=== PATIENT | male | born 1960 | race Caucasian/White ===

== ENCOUNTER 2016-10-08 07:20 | Day surgery (SDC) | payer BC ==
[2016-10-07 10:53] VITALS: BMI 16.9
[~2016-10-08 07:20] MED LIST: LACTATED RINGERS 1,000 ML IV SCH
[2016-10-08] MEDS ORDERED: LACTATED RINGERS 1,000 ML IV ONE (07:30)
[2016-10-08 07:33] VITALS: TEMP 96.9
[2016-10-08] MEDS ORDERED: MIDAZOLAM 2 MG/2 ML VIAL ONE (07:46)
[2016-10-08] MEDS ORDERED: PROPOFOL 10 MG/ML 20 ML VIAL IV ONE (07:46)
[2016-10-08] MEDS ORDERED: fentaNYL (PF) 50 MCG/ML 2 ML AMP ONE (07:46)
--- NOTE | 2016-10-08 07:49 | P.GSHP ---
History of Present Illness H&P Date: 10/08/16 Chief Complaint: Cancer screening Patient here today for colonoscopy. She has not had one for quite some time. Denies any bowel related complaints. No family history of colon cancer. He has a personal history of testicular cancer. Past Medical History Past Medical History: Cancer, CVA/TIA Additional Past Medical History / Comment(s): HX OF TESTICULAR CA, HAD SX, RADIATION AND CHEMO, HX OF TYRON TINNITUS. HX TIA, NO RESIDUAL EFFECTS History of Any Multi-Drug Resistant Organisms: None Reported Additional Past Surgical History / Comment(s): TESTICULAR CANCER SX Past Anesthesia/Blood Transfusion Reactions: No Reported Reaction Past Psychological History: No Psychological Hx Reported Smoking Status: Never smoker Past Alcohol Use History: None Reported Past Drug Use History: None Reported - Past Family History Father Family Medical History: Cancer Additional Family Medical History / Comment(s): LEUKEMIA Medications and Allergies Home Medications Medication Instructions Recorded Confirmed Type Multivitamin [Multiple Vitamins] 1 each PO DAILY 10/08/16 10/08/16 History Allergies Allergy/AdvReac Type Severity Reaction Status Date / Time No Known Allergies Allergy Verified 10/07/16 10:48 Surgical - Exam Vital Signs Temp Pulse Resp BP Pulse Ox 96.9 F L 76 14 130/70 100 10/08/16 07:32 10/08/16 07:32 10/08/16 07:32 10/08/16 07:32 10/08/16 07:32 Physical exam: General: Malnourished appearing male in no distress HEENT: Normocephalic, sclerae nonicteric Abdomen: Nontender, nondistended Extremities: No edema Neuro: Alert and oriented Assessment and Plan (1) Colon cancer screening Narrative/Plan: Will proceed with colonoscopy at this time. Status: Acute
--- NOTE | 2016-10-08 08:06 | P.PCN ---
Date of Procedure: 10/08/16 Preoperative Diagnosis: Postoperative Diagnosis: Procedure(s) Performed: PREOPERATIVE DIAGNOSIS: Colon cancer screening POSTOPERATIVE DIAGNOSIS: Diverticulosis PROCEDURE: Colonoscopy ANESTHESIA: MAC SURGEON: Mic Barron M.D. SPECIMENS: None ENDOSCOPIC PROCEDURE: The patient was placed on the endoscopy table in the left decubitus position. The Olympus colonoscope was inserted into the anus and passed under direct visualization to the base of the cecum. The appendiceal orifice was visualized. From that point the scope was slowly withdrawn inspecting all surfaces carefully. There were no neoplastic inflammatory or polypoid lesions throughout the cecum, ascending, transverse, descending, sigmoid and rectum. There was mild diverticulosis noted throughout the colon. Digital rectal examination was normal. The patient was taken to the recovery room in stable condition per anesthesia guidelines. RECOMMENDATIONS: Increase fiber. Follow-up colonoscopy in 10 years. Implants: Indications for Procedure: Operative Findings: Description of Procedure:
[2016-10-08 08:44] VITALS: BP 109/60; PULSE 63; RESP 16
== END 2016-10-08 08:59 | disposition home or self-care (01) ==
LOC: ORWHC2ENDO 07:20
PROVIDERS: ATTEND Surgery
DX: Z12.11 Encounter for screening for malignant neoplasm of colon (principal); K57.30 Diverticulosis of large intestine without perforation or abscess without bleeding; Z85.47 Personal history of malignant neoplasm of testis; Z86.73 Personal history of transient ischemic attack (TIA), and cerebral infarction without residual deficits; Z92.21 Personal history of antineoplastic chemotherapy; Z92.3 Personal history of irradiation
CPT/HCPCS: J2250; J3010; J2704; G0121

== ENCOUNTER 2018-03-06 13:03 | Inpatient (IN) | payer BC ==
[2018-03-06] MEDS ORDERED: SODIUM CHLORIDE 0.9% 1,000 ML IV STA (14:35)
--- NOTE | 2018-03-06 14:35 | ED ---
General Adult HPI <Jermaine Koo - Last Filed: 03/06/18 16:38> - General Source: patient Mode of arrival: wheelchair Limitations: no limitations <Edward Longoria - Last Filed: 03/06/18 18:50> - General Chief complaint: Abdominal Pain Stated complaint: Abdomen Pain Time Seen by Provider: 03/06/18 14:09 - History of Present Illness Initial comments: 57-year-old male with a history of testicular cancer and IBS presents to the emergency department for a chief complaint of right sided abdominal pain times one day. Patient states pain was severe for about 2 hours and has since resolved somewhat. Patient denies a history of appendectomy. He did have a colonoscopy 1 year ago and was diagnosed with diverticulosis. Patient denies any nausea or vomiting. He described the pain as a sharp pain. He denies any fevers or chills at home. Patient has no other complaints at this time including shortness of breath, chest pain, abdominal pain, nausea or vomiting, headache, or visual changes. (Edward Longoria) - Related Data Home Medications Medication Instructions Recorded Confirmed No Known Home Medications 03/06/18 03/06/18 Allergies Allergy/AdvReac Type Severity Reaction Status Date / Time No Known Allergies Allergy Verified 03/06/18 14:31 Review of Systems ROS Other: All systems not noted in ROS Statement are negative. <Jermaine Koo - Last Filed: 03/06/18 16:38> ROS Other: All systems not noted in ROS Statement are negative. <Edward Longoria - Last Filed: 03/06/18 18:50> ROS Statement: Those systems with pertinent positive or pertinent negative responses have been documented in the HPI. Past Medical History Past Medical History: Cancer, CVA/TIA Additional Past Medical History / Comment(s): HX OF TESTICULAR CA, HAD SX, RADIATION AND CHEMO, HX OF TYRON TINNITUS. HX TIA, NO RESIDUAL EFFECTS History of Any Multi-Drug Resistant Organisms: None Reported Additional Past Surgical History / Comment(s): TESTICULAR CANCER SX Past Anesthesia/Blood Transfusion Reactions: No Reported Reaction Past Psychological History: No Psychological Hx Reported Smoking Status: Never smoker Past Alcohol Use History: None Reported Past Drug Use History: None Reported - Past Family History Father Family Medical History: Cancer Additional Family Medical History / Comment(s): LEUKEMIA <Edward Longoria - Last Filed: 03/06/18 18:50> General Exam Limitations: no limitations General appearance: alert, in no apparent distress Head exam: Present: atraumatic, normocephalic, normal inspection Eye exam: Present: normal appearance, PERRL, EOMI. Absent: scleral icterus, conjunctival injection, periorbital swelling ENT exam: Present: normal exam, mucous membranes moist Neck exam: Present: normal inspection, full ROM. Absent: tenderness, meningismus, lymphadenopathy Respiratory exam: Present: normal lung sounds bilaterally. Absent: respiratory distress, wheezes, rales, rhonchi, stridor Cardiovascular Exam: Present: regular rate, normal rhythm, normal heart sounds. Absent: systolic murmur, diastolic murmur, rubs, gallop, clicks GI/Abdominal exam: Present: soft, tenderness (Patient has right lower abdominal tenderness without rebound or guarding. Positive obturator sign. Negative Longoria sign. ), normal bowel sounds. Absent: distended, guarding, rebound, rigid Neurological exam: Present: alert, oriented X3, CN II-XII intact Psychiatric exam: Present: normal affect, normal mood <Edward Longoria P - Last Filed: 03/06/18 18:50> Course <Jermaine Koo - Last Filed: 03/06/18 16:38> <Edward Longoria P - Last Filed: 03/06/18 18:50> Vital Signs 03/06/18 03/06/18 03/06/18 13:04 15:24 17:22 Temperature 98.6 F Pulse Rate 89 86 68 Respiratory 18 16 16 Rate Blood Pressure 151/62 130/74 128/71 O2 Sat by Pulse 96 100 99 Oximetry - Reevaluation(s) Reevaluation #1: 03/06/18 16:39 Patient reevaluated by myself, Dr. Koo. Patient states he did have discomfort around 1 month ago that resolved after just a couple of days. Patient did see his doctor at that time and was given antibiotics however did not finish the prescription. Discomfort started again yesterday. Abdomen is soft with mild to moderate tenderness more so on the right side. Patient and family updated on CT results and concerns. This does include concerns regarding right renal mass. Case was discussed in detail with Dr. Olmos, who will admit his patient with consult for Dr. Fang. Patient does not meet sepsis criteria. (Jermaine Koo) Medical Decision Making - Lab Data Result diagrams: 03/06/18 14:19 03/06/18 14:19 <Jermaine Koo - Last Filed: 03/06/18 16:38> - Lab Data Result diagrams: 03/06/18 14:19 03/06/18 14:19 <Edward Longoria - Last Filed: 03/06/18 18:50> - Medical Decision Making 87-year-old male with a past medical history of IBS and testicular cancer presents to the emergency department for a chief complaint of right-sided abdominal pain times one day. Patient states this pain lasted for about 2 hours and has since resolved somewhat. He was offered pain medication at this time and currently refused. Patient is afebrile in the emergency department and vitals are stable. On exam patient does have right lower quadrant tenderness with positive obturator. No history of appendectomy. CBC and CMP unremarkable. Total bilirubin 2.0. Patient denies any right upper quadrant pain or epigastric pain. AST and ALT are within normal limits. CT abdomen and pelvis with contrast shows severe inflammation along the right side of the abdomen. There is irregular wall thickening which involves the ascending colon and hepatic flexure with mild free fluid. Mild diverticular changes are noted here. Patient does have a history of irritable bowel syndrome. Appendix is visualized and is also mildly inflamed with diffuse thickening up to 8 mm. This could be reactive rather than acute appendicitis. There is prominent fluid filled small bowel loops in the pelvis likely secondary ileus. At this time it is felt that patient should be admitted with surgical consult. He was started on IV antibiotics and blood cultures were drawn. Patient also has a mass on the kidney. Dr. Koo spoke with Dr. Olmos about this and he is now aware as well as the patient. (Edward Longoria) - Lab Data Lab Results 03/06/18 03/06/18 03/06/18 Range/Units 14:19 14:19 14:19 WBC 7.4 (3.8-10.6) k/uL RBC 4.40 (4.30-5.90) m/uL Hgb 13.7 (13.0-17.5) gm/dL Hct 41.0 (39.0-53.0) % MCV 93.3 (80.0-100.0) fL MCH 31.1 (25.0-35.0) pg MCHC 33.4 (31.0-37.0) g/dL RDW 14.1 (11.5-15.5) % Plt Count 211 (150-450) k/uL Neutrophils % 87 % Lymphocytes % 9 % Monocytes % 2 % Eosinophils % 1 % Basophils % 0 % Neutrophils # 6.5 (1.3-7.7) k/uL Lymphocytes # 0.7 L (1.0-4.8) k/uL Monocytes # 0.2 (0-1.0) k/uL Eosinophils # 0.1 (0-0.7) k/uL Basophils # 0.0 (0-0.2) k/uL Sodium 137 (137-145) mmol/L Potassium 4.4 (3.5-5.1) mmol/L Chloride 102 (98-107) mmol/L Carbon Dioxide 26 (22-30) mmol/L Anion Gap 9 mmol/L BUN 23 H (9-20) mg/dL Creatinine 0.82 (0.66-1.25) mg/dL Est GFR (CKD-EPI)AfAm >90 (>60 ml/min/1.73 sqM) Est GFR (CKD-EPI)NonAf >90 (>60 ml/min/1.73 sqM) Glucose 132 H (74-99) mg/dL Calcium 9.2 (8.4-10.2) mg/dL Total Bilirubin 2.0 H (0.2-1.3) mg/dL AST 35 (17-59) U/L ALT 39 (21-72) U/L Alkaline Phosphatase 65 (38-126) U/L Total Protein 7.1 (6.3-8.2) g/dL Albumin 4.0 (3.5-5.0) g/dL Amylase 53 (30-110) U/L Lipase 39 (23-300) U/L Urine Color Yellow Urine Appearance Cloudy (Clear) Urine pH 7.5 (5.0-8.0) Ur Specific Summers 1.022 (1.001-1.035) Urine Protein Trace H (Negative) Urine Glucose (UA) Negative (Negative) Urine Ketones Negative (Negative) Urine Blood Negative (Negative) Urine Nitrite Negative (Negative) Urine Bilirubin Negative (Negative) Urine Urobilinogen <2.0 (<2.0) mg/dL Ur Leukocyte Esterase Negative (Negative) Urine RBC 1 (0-5) /hpf Urine WBC 1 (0-5) /hpf Urine Bacteria Rare H (None) /hpf Urine Mucus Few H (None) /hpf Disposition <Jermaine Koo - Last Filed: 03/06/18 16:38> Is patient prescribed a controlled substance at d/c from ED?: No Time of Disposition: 16:19 <Edward Longoria - Last Filed: 03/06/18 18:50> Clinical Impression: Inflammation of large intestine Disposition: ADMITTED IP TO THIS HOSP Condition: Good
[2018-03-06 15:10] LABS: Basophils % (A) 0 %; Eosinophils # (A) 0.1 k/uL (0-0.7); Eosinophils % (A) 1 %; HGB 13.7 gm/dL (13.0-17.5); Lymphocytes # (A) 0.7 k/uL (1.0-4.8); Lymphocytes % (A) 9 %; MCH 31.1 pg (25.0-35.0); MCHC 33.4 g/dL (31.0-37.0); MCV 93.3 fL (80.0-100.0); Mean Platelet Volume 6.9; Monocytes # (A) 0.2 k/uL (0-1.0); Monocytes % (A) 2 %; Neutrophils # (A) 6.5 k/uL (1.3-7.7); Neutrophils % (A) 87 %; Platelet Count 211 k/uL (150-450); RDW 14.1 % (11.5-15.5); WBC 7.4 k/uL (3.8-10.6)
[2018-03-06 15:20] LABS: ALT 39 U/L (21-72); AST 35 U/L (17-59); Alkaline Phosphatase 65 U/L (38-126); Amylase 53 U/L (30-110); Anion Gap 9 mmol/L; Blood Urea Nitrogen 23 mg/dL (9-20); Calcium 9.2 mg/dL (8.4-10.2); Carbon Dioxide 26 mmol/L (22-30); Chloride 102 mmol/L (98-107); Glucose 132 mg/dL (74-99); Lipase 39 U/L (23-300); Potassium 4.4 mmol/L (3.5-5.1); Sodium 137 mmol/L (137-145); Total Protein 7.1 g/dL (6.3-8.2)
--- NOTE | 2018-03-06 15:23 | CT ---
EXAMINATION TYPE: CT abdomen pelvis w con DATE OF EXAM: 03/06/2018 COMPARISON: NONE HISTORY: 57-year-old male RLQ pain today TECHNIQUE: Contiguous axial scanning of the abdomen and pelvis following administration of 100 ml Iso kimberly 300 IV contrast. Delayed images through the kidneys and coronal/sagittal reconstructions perform ed. CT DLP: 447.8 mGycm Automated exposure control for dose reduction was used. FINDINGS: Heart normal size with small pericardial effusion along the right side of the cardiac base measuring up to 2.0 cm. Lung bases clear without pleural effusion. No focal liver lesion or biliary ductal dilatation. Portal venous system is patent. Gallbladder, adrenal glands, spleen, and pancreas appear within normal limits. There is a cortical-based solid, hypervascular lesion medial upper pole right kidney. On post contras t contrast images, homogeneous enhancement approaches 112 Hounsfield units. On delayed kidney images, density is 78 Hounsfield units. 1 cm cyst upper pole left kidney. Circumaortic left renal vein noted. Mild atherosclerotic calcifications throughout the abdominal aort a and iliac arteries. No dilated small bowel. There is mild perihepatic ascites tracking down the right paracolic gutter. The appendix is visualized and shows mild diffuse thickening up to 8 mm. However, there is more exten sive wall thickening involving the cecum, ascending colon, and hepatic flecture, refer to axial image s 45 through 52 for some outside industrial sales representative images. Some diverticular changes noted along the descending colon. Additional scattered sigmoid diverticulosis. Mild pelvic ascites. Moderate circumferential bladder wall thickening may in part relate to incomplet e distention. Prostate gland measures 4.1 cm wide. Some prominent fluid filled small bowel loops are present in the pelvis. Bones: Mild degenerative changes at the hips and scattered mild degenerative disc disease. No osseous destructive process. IMPRESSION: 1. SEVERE INFLAMMATION ALONG THE RIGHT SIDE OF THE ABDOMEN. THERE IS IRREGULAR WALL THICKENING WHICH INVOLVES THE ASCENDING COLON AND HEPATIC FLEXURE WITH MILD FREE FLUID. SOME MILD DIVERTICULAR CHANGES ARE NOTED HERE. A nonspecific severe colitis including acute diverticulitis are considerations. Shor t interval follow-up recommended. 2. The appendix is visualized and is also mildly inflamed with diffuse thickening up to 8 mm. This co uld be reactive thickening rather than acute appendicitis. Again, short interval follow-up recommende d. 3. Mild free fluid. No discrete abscess. No free air identified at this time. 4. Prominent fluid-filled small bowel loops in the pelvis suggest a secondary ileus. 5. Circumferential bladder wall thickening could relate to chronic bladder wall hypertrophy or cystit is.
[2018-03-06 15:24] LABS: Appearance,Urine Cloudy (Clear); Bacteria,Urine Rare /hpf; Bilirubin,Urine Negative (Negative); Blood,Urine Negative (Negative); Color,Urine Yellow; Glucose,Urine (UA) Negative (Negative); Ketones,Urine Negative (Negative); Leukocyte Esterase,Urine Negative (Negative); Mucus,Urine Few /hpf; Nitrite,Urine Negative (Negative); PH, Urine 7.5 (5.0-8.0); Protein,Urine Trace (Negative); RBC,Urine 1 /hpf (0-5); Specific Gravity,Urine 1.022 (1.001-1.035); Urobilinogen,Urine <2.0 mg/dL (<2.0); WBC,Urine 1 /hpf (0-5)
[2018-03-06] MEDS ORDERED: MORPHINE SULFATE 4 MG/ML SYRINGE IV PRN (16:19)
[2018-03-06] MEDS ORDERED: KETOROLAC 30 MG/ML 1 ML VIAL IVP PRN (16:19)
[2018-03-06] MEDS ORDERED: NALOXONE 0.4 MG/ML 1 ML VIAL IV PRN (16:19)
[2018-03-06] MEDS: PIPERACILLIN-TAZOBACTAM 3.375 GM in DEXTROSE/WATER 1 50ML.BAG IVPB SCH ×2 (18:11→23:40)
[2018-03-06] MEDS: SODIUM CHLORIDE 0.9% 1,000 ML IV SCH ×2 (18:11→23:41)
[2018-03-06] MEDS ORDERED: ACETAMINOPHEN IV (For NPO) 1,000 MG in EMPTY BAG 1 BAG IVPB PRN (18:39)
[2018-03-07] MEDS: PIPERACILLIN-TAZOBACTAM 3.375 GM in DEXTROSE/WATER 1 50ML.BAG IVPB SCH ×3 (07:48→23:06)
--- NOTE | 2018-03-07 08:26 | P.GSCN ---
History of Present Illness Consult date: 03/07/18 Reason for Consult: Abdominal pain, colitis History of present illness: This is a 57-year-old male who had severe right-sided abdominal pain yesterday. Patient presented to the emergency room. He underwent CAT scan which showed thickened right colon. The patient states he's had a previous attack of right- sided abdominal pain approximately 2 months ago. The patient has a history of testicular cancer. He's had previous abdominal radiation. Past Medical History Past Medical History: Cancer, CVA/TIA Additional Past Medical History / Comment(s): HX OF TESTICULAR CA, HAD SX, RADIATION AND CHEMO, HX OF TYRON TINNITUS. HX TIA, NO RESIDUAL EFFECTS History of Any Multi-Drug Resistant Organisms: None Reported Additional Past Surgical History / Comment(s): TESTICULAR CANCER SX Past Anesthesia/Blood Transfusion Reactions: No Reported Reaction Past Psychological History: No Psychological Hx Reported Smoking Status: Never smoker Past Alcohol Use History: None Reported Past Drug Use History: None Reported - Past Family History Father Family Medical History: Cancer Additional Family Medical History / Comment(s): LEUKEMIA Mother Family Medical History: No Reported History Additional Family Medical History / Comment(s): healthy Medications and Allergies Home Medications Medication Instructions Recorded Confirmed Type No Known Home Medications 03/06/18 03/06/18 History Allergies Allergy/AdvReac Type Severity Reaction Status Date / Time No Known Allergies Allergy Verified 03/06/18 14:31 Surgical - Exam Vital Signs Temp Pulse Resp BP Pulse Ox 98.6 F 89 18 151/62 96 03/06/18 13:04 03/06/18 13:04 03/06/18 13:04 03/06/18 13:04 03/06/18 13:04 - General well developed, no distress - Eyes PERRL - ENT normal pinna - Neck no masses - Respiratory normal expansion - Cardiovascular Rhythm: regular - Abdomen Mild right-sided tenderness. There is no rebound or guarding. Abdomen: soft Results - Labs 03/06/18 14:19 03/06/18 14:19 Abnormal Lab Results - Last 24 Hours (Table) 03/06/18 03/06/18 03/06/18 Range/Units 14:19 14:19 14:19 Lymphocytes # 0.7 L (1.0-4.8) k/uL BUN 23 H (9-20) mg/dL Glucose 132 H (74-99) mg/dL Total Bilirubin 2.0 H (0.2-1.3) mg/dL Urine Protein Trace H (Negative) Urine Bacteria Rare H (None) /hpf Urine Mucus Few H (None) /hpf Diabetes panel 03/06/18 Range/Units 14:19 Sodium 137 (137-145) mmol/L Potassium 4.4 (3.5-5.1) mmol/L Chloride 102 (98-107) mmol/L Carbon Dioxide 26 (22-30) mmol/L BUN 23 H (9-20) mg/dL Creatinine 0.82 (0.66-1.25) mg/dL Glucose 132 H (74-99) mg/dL Calcium 9.2 (8.4-10.2) mg/dL AST 35 (17-59) U/L ALT 39 (21-72) U/L Alkaline Phosphatase 65 (38-126) U/L Total Protein 7.1 (6.3-8.2) g/dL Albumin 4.0 (3.5-5.0) g/dL Calcium panel 03/06/18 Range/Units 14:19 Calcium 9.2 (8.4-10.2) mg/dL Albumin 4.0 (3.5-5.0) g/dL Pituitary panel 03/06/18 Range/Units 14:19 Sodium 137 (137-145) mmol/L Potassium 4.4 (3.5-5.1) mmol/L Chloride 102 (98-107) mmol/L Carbon Dioxide 26 (22-30) mmol/L BUN 23 H (9-20) mg/dL Creatinine 0.82 (0.66-1.25) mg/dL Glucose 132 H (74-99) mg/dL Calcium 9.2 (8.4-10.2) mg/dL Adrenal panel 03/06/18 Range/Units 14:19 Sodium 137 (137-145) mmol/L Potassium 4.4 (3.5-5.1) mmol/L Chloride 102 (98-107) mmol/L Carbon Dioxide 26 (22-30) mmol/L BUN 23 H (9-20) mg/dL Creatinine 0.82 (0.66-1.25) mg/dL Glucose 132 H (74-99) mg/dL Calcium 9.2 (8.4-10.2) mg/dL Total Bilirubin 2.0 H (0.2-1.3) mg/dL AST 35 (17-59) U/L ALT 39 (21-72) U/L Alkaline Phosphatase 65 (38-126) U/L Total Protein 7.1 (6.3-8.2) g/dL Albumin 4.0 (3.5-5.0) g/dL - Imaging CT scan - abdomen: report reviewed (Severe inflammation of right colon.) Assessment and Plan Assessment: Right colon colitis. Unsure of etiology at this point. Patient will undergo colonoscopy in the a.m.
[2018-03-07] MEDS: SODIUM CHLORIDE 0.9% 1,000 ML IV SCH ×2 (09:06→17:47)
[2018-03-07 11:44] VITALS: BMI 17.4
--- NOTE | 2018-03-07 12:51 | P.GSCN ---
History of Present Illness Consult date: 03/07/18 History of present illness: This is a pleasant 57-year-old gentleman who came into the hospital with severe abdominal pain. The pain is on the right side. He had a computed tomography scan of the abdomen that identified notable ascending colon inflammation. He was also noted that he had a 3 cm solid appearing mass in the medial upper pole of the right kidney. This mass appears to be exophytic. For this reason we are asked see the patient. The patient has not been seen by urologist in this community before. 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 He had postoperative radiation to the retroperitoneal lymph nodes. He developed pulmonary metastases required chemotherapy. He has had no evidence of recurrence since. He has had some bleomycin toxicity to his lungs leaving him with some mild COPD. He has no other urologic history. He has no history kidney stones hematuria dysuria urine infections. He has had this right-sided abdominal pain approximately 3 months ago that lasted for a couple of days. He has not had a CAT scan for several years. His no microscopic hematuria. His kidney function is normal. He does not have diarrhea and nausea or vomiting. He does not have any significant neuropathy from the cisplatin. Review of Systems - Respiratory Reports as per HPI - Gastrointestinal Reports as per HPI - Genitourinary Reports as per HPI - Neurological Neurologic Comment(s): The patient did have an episode of years back of right-sided facial numbness and hand weakness for a few hours that went away on its own. He did not have a stroke. He is evaluated for vascular abnormalities and none were identified. Past Medical History Past Medical History: Cancer, CVA/TIA Additional Past Medical History / Comment(s): HX OF TESTICULAR CA, HAD SX, RADIATION AND CHEMO, HX OF TYRON TINNITUS. HX TIA, NO RESIDUAL EFFECTS History of Any Multi-Drug Resistant Organisms: None Reported Additional Past Surgical History / Comment(s): TESTICULAR CANCER SX Past Anesthesia/Blood Transfusion Reactions: No Reported Reaction Past Psychological History: No Psychological Hx Reported Smoking Status: Never smoker Past Alcohol Use History: None Reported Past Drug Use History: None Reported - Past Family History Father Family Medical History: Cancer Additional Family Medical History / Comment(s): LEUKEMIA Mother Family Medical History: No Reported History Additional Family Medical History / Comment(s): healthy Medications and Allergies Home Medications Medication Instructions Recorded Confirmed Type No Known Home Medications 03/06/18 03/06/18 History Allergies Allergy/AdvReac Type Severity Reaction Status Date / Time No Known Allergies Allergy Verified 03/06/18 14:31 Surgical - Exam Vital Signs Temp Pulse Resp BP Pulse Ox 98.6 F 89 18 151/62 96 03/06/18 13:04 03/06/18 13:04 03/06/18 13:04 03/06/18 13:04 03/06/18 13:04 - General well developed, well nourished, no distress - Eyes PERRL - ENT normal mucosa, no hearing loss - Neck no masses, trachea midline - Respiratory normal expansion, normal respiratory effort - Cardiovascular Rhythm: regular - Abdomen Abdomen: soft, non tender - Genitourinary A testicular implant on the left side. Small soft right testicle without nodules. - Integumentary no rash, no growths - Neurologic normal coordination, normal sensation - Musculoskeletal normal posture - Psychiatric oriented to time, oriented to person, oriented to place, speech is normal, memory intact Results - Labs 03/06/18 14:19 03/06/18 14:19 Abnormal Lab Results - Last 24 Hours (Table) 03/06/18 03/06/18 03/06/18 Range/Units 14:19 14:19 14:19 Lymphocytes # 0.7 L (1.0-4.8) k/uL BUN 23 H (9-20) mg/dL Glucose 132 H (74-99) mg/dL Total Bilirubin 2.0 H (0.2-1.3) mg/dL Urine Protein Trace H (Negative) Urine Bacteria Rare H (None) /hpf Urine Mucus Few H (None) /hpf Diabetes panel 03/06/18 Range/Units 14:19 Sodium 137 (137-145) mmol/L Potassium 4.4 (3.5-5.1) mmol/L Chloride 102 (98-107) mmol/L Carbon Dioxide 26 (22-30) mmol/L BUN 23 H (9-20) mg/dL Creatinine 0.82 (0.66-1.25) mg/dL Glucose 132 H (74-99) mg/dL Calcium 9.2 (8.4-10.2) mg/dL AST 35 (17-59) U/L ALT 39 (21-72) U/L Alkaline Phosphatase 65 (38-126) U/L Total Protein 7.1 (6.3-8.2) g/dL Albumin 4.0 (3.5-5.0) g/dL Calcium panel 03/06/18 Range/Units 14:19 Calcium 9.2 (8.4-10.2) mg/dL Albumin 4.0 (3.5-5.0) g/dL Pituitary panel 03/06/18 Range/Units 14:19 Sodium 137 (137-145) mmol/L Potassium 4.4 (3.5-5.1) mmol/L Chloride 102 (98-107) mmol/L Carbon Dioxide 26 (22-30) mmol/L BUN 23 H (9-20) mg/dL Creatinine 0.82 (0.66-1.25) mg/dL Glucose 132 H (74-99) mg/dL Calcium 9.2 (8.4-10.2) mg/dL Adrenal panel 03/06/18 Range/Units 14:19 Sodium 137 (137-145) mmol/L Potassium 4.4 (3.5-5.1) mmol/L Chloride 102 (98-107) mmol/L Carbon Dioxide 26 (22-30) mmol/L BUN 23 H (9-20) mg/dL Creatinine 0.82 (0.66-1.25) mg/dL Glucose 132 H (74-99) mg/dL Calcium 9.2 (8.4-10.2) mg/dL Total Bilirubin 2.0 H (0.2-1.3) mg/dL AST 35 (17-59) U/L ALT 39 (21-72) U/L Alkaline Phosphatase 65 (38-126) U/L Total Protein 7.1 (6.3-8.2) g/dL Albumin 4.0 (3.5-5.0) g/dL - Imaging CT scan - abdomen: report reviewed, image reviewed CT scan - pelvis: report reviewed, image reviewed Assessment and Plan Assessment: Impression: Right-sided colitis indeterminate etiology. Solid right renal mass , renal cell carcinoma versus angiomyolipoma. Recommendations: Once the patient's colon situation has been completely evaluated and treated I will need to sleep the assessment of the right renal mass. I will discuss with radiology about either repeating the computed tomography scan with and without contrast versus doing a MRI to clarify the diagnosis if possible short of either biopsy or remove the lesion. I do not think this has anything to do with his previous testicular cancer nor the abdominal pain that he is experiencing at present. I will see this patient prior to discharge. If not he should have an appointment to see me within a couple of weeks upon discharge.
[2018-03-07] MEDS ORDERED: PEG 3350-NA SULF,BICARB,CL/KCL 4,000 ML BOTTLE PO ONE (13:00)
--- NOTE | 2018-03-07 13:50 | P.HPIM ---
History of Present Illness H&P Date: 03/07/18 Chief Complaint: Abdominal pain 57-year-old male who presented to emergency room with a chief complaint of right-sided abdominal pain that has increased in severity over the last 24 hours. He denies nausea or vomiting. Denies diarrhea or constipation. Denies fever or chills. CT of the abdomen and pelvis was completed revealing severe inflammation along the right side of abdomen. There is irregular wall thickening which involves the ascending colon and hepatic flexure with mild free fluid. Some mild diverticular changes. Nonspecific severe colitis including acute diverticulitis are considerations. The appendix is visualized and is also mildly inflamed with diffuse thickening up to 8 mm. This could be reactive thickening rather than acute appendicitis. Mild free fluid. No discrete abscess. No free air. Prominent fluid-filled small bowel loops in the pelvis suggesting secondary ileus. A 1.7 cm solid, hypervascular mass medial upper pole right kidney. The enhancement characteristics favor a lipid for AML rather than RCC. Both are in the differential. Urology referral recommended. Laboratory data upon admission reveals white count 7.4. Hemoglobin 13.7. Platelet count 211. Sodium 137. Potassium 4.4. BUN 23. Creatinine 0.82. Glucose 132. Total bilirubin 2.0. AST 35. ALT 39. Urinalysis reveals trace proteinuria, rare bacteria, few mucus. The patient was admitted to the hospital under the care of Dr. Olmos. Consultations were placed to Gen. surgery, Dr. Fang Review of Systems Those systems with pertinent positive or pertinent negative responses have been documented in the HPI Past Medical History Past Medical History: Cancer, CVA/TIA Additional Past Medical History / Comment(s): HX OF TESTICULAR CA, HAD SX, RADIATION AND CHEMO, HX OF TYRON TINNITUS. HX TIA, NO RESIDUAL EFFECTS History of Any Multi-Drug Resistant Organisms: None Reported Additional Past Surgical History / Comment(s): TESTICULAR CANCER SX Past Anesthesia/Blood Transfusion Reactions: No Reported Reaction Past Psychological History: No Psychological Hx Reported Smoking Status: Never smoker Past Alcohol Use History: None Reported Past Drug Use History: None Reported - Past Family History Father Family Medical History: Cancer Additional Family Medical History / Comment(s): LEUKEMIA Mother Family Medical History: No Reported History Additional Family Medical History / Comment(s): healthy Medications and Allergies Home Medications Medication Instructions Recorded Confirmed Type No Known Home Medications 03/06/18 03/06/18 History Allergies Allergy/AdvReac Type Severity Reaction Status Date / Time No Known Allergies Allergy Verified 03/06/18 14:31 Physical Exam Vitals: Vital Signs Temp Pulse Pulse Resp BP BP Pulse Ox 03/07/18 09:09 83 17 03/07/18 07:52 97.7 F 83 17 129/61 96 03/07/18 07:00 99.2 F 79 18 121/68 96 03/06/18 23:00 99.0 F 83 18 113/52 96 03/06/18 21:10 98.2 F 03/06/18 17:58 102.4 F H 92 18 122/53 97 03/06/18 17:22 68 16 128/71 99 03/06/18 15:24 86 16 130/74 100 Intake and Output 03/06/18 03/07/18 03/07/18 22:59 06:59 14:59 Intake Total 0 0 Balance 0 0 Intake: Oral 0 0 Other: Voiding Method Toilet # Voids 2 2 Weight 56.699 kg GENERAL: This is a 57-year-old male in no apparent distress at the time of examination. HEENT: Head is atraumatic, normocephalic. Pupils are equal, round, and reactive to light. Sclerae anicteric. Conjunctivae are clear. Mucus membranes of the mouth are moist. Neck is supple. RESPIRATORY: Clear to auscultation. No wheezes, rales, or rhonchi. No use of accessory muscles. Patient maintaining oxygen saturation greater than 92%. CARDIOVASCULAR: Regular rate and rhythm. S1 and S2 noted. No systolic or diastolic murmur auscultated. No JVD noted. No S3 or S4 noted. GASTROINTESTINAL: No distention noted. Abdomen soft and round. Normal active bowel sounds auscultated x 4 quadrants. No pain or tenderness noted upon palpation. INTEGUMENTARY: No cyanosis. No jaundice. No rashes noted. No cellulitis noted. EXTREMITIES: 2+ peripheral pulses. No evidence of peripheral edema. No calf tenderness noted. NEUROLOGIC: Cranial nerves II-XII intact. PSYCHIATRIC: Awake, alert, and oriented X 3. Appropriate affect. Intact judgement and insight. Results CBC & Chem 7: 03/06/18 14:19 03/06/18 14:19 Labs: Abnormal Lab Results - Last 24 Hours (Table) 03/06/18 03/06/18 03/06/18 Range/Units 14:19 14:19 14:19 Lymphocytes # 0.7 L (1.0-4.8) k/uL BUN 23 H (9-20) mg/dL Glucose 132 H (74-99) mg/dL Total Bilirubin 2.0 H (0.2-1.3) mg/dL Urine Protein Trace H (Negative) Urine Bacteria Rare H (None) /hpf Urine Mucus Few H (None) /hpf Thrombosis Risk Factor Assmnt - Choose All That Apply Any of the Below Risk Factors Present?: Yes Each Factor Represents 1 point: Age 41-60 years Thrombosis Risk Factor Assessment Total Risk Factor Score: 1 Thrombosis Risk Factor Assessment Level: Low Risk Assessment and Plan Plan: ASSESSMENT: Abdominal pain, may be secondary to colitis, CT reveals severe inflammation of the right colon 1.7 cm solid renal mass History of testicular cancer with radiation and chemotherapy History of TIA PLAN: General surgery, Dr. Fang, on consult. Appreciate recommendations and input Patient scheduled for colonoscopy tomorrow Consult urology for further evaluation of renal mass Monitor labs GI prophylaxis: Protonix 40 mg IV daily DVT prophylaxis: SAY hose to bilateral lower extremities Monitor vital signs and address as appropriate Discharge planning: Patient to return home when stable Further recommendations pending patient's course Nurse practitioner note has been reviewed by physician. Signing provider agrees with the documented findings, assessment, and plan of care.
[2018-03-08] MEDS: SODIUM CHLORIDE 0.9% 1,000 ML IV SCH ×2 (00:49→11:22)
[2018-03-08] MEDS ORDERED: HYDROmorphone 1 MG/ML 1 ML SYRINGE IVP PRN (06:40)
[2018-03-08] MEDS ORDERED: LACTATED RINGERS 1,000 ML IV SCH ×2 (06:45)
[2018-03-08] MEDS: PIPERACILLIN-TAZOBACTAM 3.375 GM in DEXTROSE/WATER 1 50ML.BAG IVPB SCH (07:51)
[2018-03-08] MEDS ORDERED: PANTOPRAZOLE 40 MG/10 ML VIAL IVP SCH (09:00)
--- NOTE | 2018-03-08 09:36 | P.PN ---
Subjective Progress Note Date: 03/08/18 57-year-old male who presented to emergency room with a chief complaint of right-sided abdominal pain that has increased in severity over the last 24 hours. He denies nausea or vomiting. Denies diarrhea or constipation. Denies fever or chills. CT of the abdomen and pelvis was completed revealing severe inflammation along the right side of abdomen. There is irregular wall thickening which involves the ascending colon and hepatic flexure with mild free fluid. Some mild diverticular changes. Nonspecific severe colitis including acute diverticulitis are considerations. The appendix is visualized and is also mildly inflamed with diffuse thickening up to 8 mm. This could be reactive thickening rather than acute appendicitis. Mild free fluid. No discrete abscess. No free air. Prominent fluid-filled small bowel loops in the pelvis suggesting secondary ileus. A 1.7 cm solid, hypervascular mass medial upper pole right kidney. The enhancement characteristics favor a lipid for AML rather than RCC. Both are in the differential. Urology referral recommended. Laboratory data upon admission reveals white count 7.4. Hemoglobin 13.7. Platelet count 211. Sodium 137. Potassium 4.4. BUN 23. Creatinine 0.82. Glucose 132. Total bilirubin 2.0. AST 35. ALT 39. Urinalysis reveals trace proteinuria, rare bacteria, few mucus. The patient was admitted to the hospital under the care of Dr. Olmos. Consultations were placed to Gen. surgery, Dr. Fang 03/08/2018 Patient seen and examined at the bedside. Patient is NPO and scheduled for colonoscopy today. Patient completed his bowel prep last night. Patient states his abdominal pain is improved. He only reports minimal pain in the right lower quadrant. Denies nausea or vomiting. Urology was consulted to evaluate right renal mass. Possible repeat CAT scan with and without contrast versus doing an MRI to clarify diagnosis. The patient did have a fever last night of 100.2. This morning he is afebrile. Objective - Vital Signs Vital signs: Vital Signs Temp 97.7 F 03/08/18 07:22 Pulse 88 03/08/18 08:39 Resp 17 03/08/18 08:39 BP 134/61 03/08/18 07:22 Pulse Ox 97 03/08/18 07:22 Intake & Output 03/07/18 03/08/18 03/08/18 18:59 06:59 18:59 Weight 56.699 kg 56.699 kg Other: Voiding Method Toilet Toilet Toilet # Voids 2 - Exam GENERAL: This is a 57-year-old male in no apparent distress at the time of examination. HEENT: Head is atraumatic, normocephalic. Pupils are equal, round, and reactive to light. Sclerae anicteric. Conjunctivae are clear. Mucus membranes of the mouth are moist. Neck is supple. RESPIRATORY: Clear to auscultation. No wheezes, rales, or rhonchi. No use of accessory muscles. Patient maintaining oxygen saturation greater than 92%. CARDIOVASCULAR: Regular rate and rhythm. S1 and S2 noted. No systolic or diastolic murmur auscultated. No JVD noted. No S3 or S4 noted. GASTROINTESTINAL: No distention noted. Abdomen soft and round. Normal active bowel sounds auscultated x 4 quadrants. Mild tenderness noted upon palpation of right lower quadrant. INTEGUMENTARY: No cyanosis. No jaundice. No rashes noted. No cellulitis noted. EXTREMITIES: 2+ peripheral pulses. No evidence of peripheral edema. No calf tenderness noted. NEUROLOGIC: Cranial nerves II-XII intact. PSYCHIATRIC: Awake, alert, and oriented X 3. Appropriate affect. Intact judgement and insight. - Labs CBC & Chem 7: 03/06/18 14:19 03/06/18 14:19 Labs: Microbiology - Last 24 Hours (Table) 03/06/18 14:19 Blood Culture - Preliminary Blood No Growth after 24 hours Assessment and Plan Plan: ASSESSMENT: Abdominal pain, may be secondary to colitis, CT reveals severe inflammation of the right colon 1.7 cm solid right renal mass, renal cell carcinoma versus angiomyolipoma History of testicular cancer with radiation and chemotherapy History of TIA PLAN: General surgery, Dr. Fang, on consult. Appreciate recommendations and input Patient scheduled for colonoscopy today Urology on consult for further evaluation of renal mass. Appreciate recommendations and input Possible repeat CAT scan with and without contrast versus doing an MRI to clarify diagnosis. Will defer to urology. Monitor labs GI prophylaxis: Protonix 40 mg IV daily DVT prophylaxis: SAY hose to bilateral lower extremities Monitor vital signs and address as appropriate Discharge planning: Patient to return home when stable Further recommendations pending patient's course Nurse practitioner note has been reviewed by physician. Signing provider agrees with the documented findings, assessment, and plan of care.
[2018-03-08 11:55] VITALS: RESP 16
[2018-03-08] MEDS ORDERED: LIDOCAINE 1% INJ 10MG/ML (20 ML MDV) ONE (13:31)
[2018-03-08] MEDS ORDERED: PROPOFOL 10 MG/ML 20 ML VIAL IV ONE (13:31)
[2018-03-08] MEDS ORDERED: IV FLUID CONTINUATION 1,000 ML IV ONE (13:33)
--- NOTE | 2018-03-08 13:51 | P.OP ---
Date of Procedure: 03/08/18 Preoperative Diagnosis: Right sided colitis Postoperative Diagnosis: Cecal polyp Right colon biopsy Procedure(s) Performed: Colonoscopy Anesthesia: MAC Surgeon: Lenard Fang Pathology: other (Right colon biopsy, cecal polyp) Condition: stable Disposition: PACU Description of Procedure: The patient's placed on the endoscopy table in the lateral position. He received IV sedation. Digital rectal exam was performed which revealed no abnormalities. The flexible colonoscope was then placed patient anus and passed throughout the entire colon. The ileocecal valve was visualized. The cecum appeared normal. There was a small sessile polyp which was removed. The right colon appeared normal. A random biopsies were colon was performed. The scope was then brought back the remainder of the transverse colon appeared normal. In the descending sigmoid colon there is mild diverticular changes. Scope was then brought back the rectum and this appeared normal. Scope was withdrawn for patient.
--- NOTE | 2018-03-08 14:04 | P.DS ---
Providers Date of admission: 03/06/18 16:40 Expected date of discharge: 03/08/18 Attending physician: Deo Olmos Consults: 03/06/18 16:40 Consult Physician Urgent Consulting Provider: Lenard Fang Consult Reason/Comments: ab pain, review ct Do you want consulting provider notified?: Yes 03/07/18 08:14 Consult Physician Routine Consulting Provider: Tavo Lee Consult Reason/Comments: renal mass Do you want consulting provider notified?: Yes Primary care physician: Deo Olmos Hospital Course: 57-year-old male who presented to emergency room with a chief complaint of right-sided abdominal pain that has increased in severity over the last 24 hours. He denies nausea or vomiting. Denies diarrhea or constipation. Denies fever or chills. CT of the abdomen and pelvis was completed revealing severe inflammation along the right side of abdomen. There is irregular wall thickening which involves the ascending colon and hepatic flexure with mild free fluid. Some mild diverticular changes. Nonspecific severe colitis including acute diverticulitis are considerations. The appendix is visualized and is also mildly inflamed with diffuse thickening up to 8 mm. This could be reactive thickening rather than acute appendicitis. Mild free fluid. No discrete abscess. No free air. Prominent fluid-filled small bowel loops in the pelvis suggesting secondary ileus. A 1.7 cm solid, hypervascular mass medial upper pole right kidney. The enhancement characteristics favor a lipid for AML rather than RCC. Both are in the differential. Urology referral recommended. Laboratory data upon admission reveals white count 7.4. Hemoglobin 13.7. Platelet count 211. Sodium 137. Potassium 4.4. BUN 23. Creatinine 0.82. Glucose 132. Total bilirubin 2.0. AST 35. ALT 39. Urinalysis reveals trace proteinuria, rare bacteria, few mucus. The patient was admitted to the hospital under the care of Dr. Olmos. Consultations were placed to Gen. surgery, Dr. Fang Urology was consulted to evaluate right renal mass. Urology recommends possible repeat CAT scan with and without contrast versus doing an MRI to clarify diagnosis. The patient was instructed to follow up with urology on an outpatient basis after discharge. The patient underwent colonoscopy with Dr. Fang revealed diverticulosis. A polyp was removed and biopsied. The patient was upset that his colonoscopy was not performed until this afternoon and demanded to be discharged home. Agreeable to discharge home with close outpatient follow up. DISCHARGE DIAGNOSIS: Abdominal pain, CT reveals severe inflammation of the right colon, status post colonoscopy revealing polyp and diverticulosis, and abdominal pain resolved at time of discharge 1.7 cm solid right renal mass, renal cell carcinoma versus angiomyolipoma History of testicular cancer with radiation and chemotherapy History of TIA Nurse practitioner note has been reviewed by physician. Signing provider agrees with the documented findings, assessment, and plan of care. Patient Condition at Discharge: Stable Plan - Discharge Summary Discharge Rx Participant: No New Discharge Prescriptions: No Action No Known Home Medications Discharge Medication List No Known Home Medications 03/06/18 [History] Follow up Appointment(s)/Referral(s): Deo Olmos DO [Primary Care Provider] - 1 Week John Draper MD [STAFF PHYSICIAN] - 1 Week Lenard Fang MD [STAFF PHYSICIAN] - 2 Weeks Discharge Disposition: HOME SELF-CARE
[2018-03-08 15:56] VITALS: BP 118/65; PULSE 78; TEMP 97.9
[2018-03-08] MEDS ORDERED: PIPERACILLIN-TAZOBACTAM 3.375 GM in SODIUM CHLORIDE 0.9% 100 ML IVPB SCH (16:00)
== END 2018-03-08 15:59 | disposition home or self-care (01) | DRG 391 ==
LOC: EC 13:03 → 4MS4W 16:40
PROVIDERS: ADMIT Family Medicine; ATTEND Family Medicine
PROC: 0DBF8ZX Excision of Right Large Intestine, Via Natural or Artificial Opening Endoscopic, Diagnostic (ICD-10-PCS; 2018-03-08)
PROC: 0DBH8ZX Excision of Cecum, Via Natural or Artificial Opening Endoscopic, Diagnostic (ICD-10-PCS; principal; 2018-03-08 11:05)
DX: K52.9 Noninfective gastroenteritis and colitis, unspecified (principal); K57.31 Diverticulosis of large intestine without perforation or abscess with bleeding; D12.0 Benign neoplasm of cecum; K58.9 Irritable bowel syndrome, unspecified; N28.89 Other specified disorders of kidney and ureter; J44.9 Chronic obstructive pulmonary disease, unspecified; H93.13 Tinnitus, bilateral; Z86.73 Personal history of transient ischemic attack (TIA), and cerebral infarction without residual deficits; Z85.47 Personal history of malignant neoplasm of testis; Z92.3 Personal history of irradiation; Z92.21 Personal history of antineoplastic chemotherapy; Z80.6 Family history of leukemia
CPT/HCPCS: 36415; 45380; 74177; 80053; 81001; 82150; 83690; 85025; 87040; 88305; 96361; 96374; 99285

== ENCOUNTER → 2018-04-12 | Outpatient (CLI) | payer BC ==
--- NOTE | 2018-04-12 13:26 | MR ---
EXAMINATION TYPE: MR kidney wo/w con DATE OF EXAM: 04/12/2018 COMPARISON: CT of the abdomen and pelvis dated 03/06/2018 HISTORY: Right renal mass / Abnormal CT CONTRAST: Standard multiplanar, multisequence MRI departmental protocol utilizing 6 mL intravenous Gadavist jason olinium contrast. FINDINGS: There is a solid mass noted arising exophytically from the medial upper pole right kidney which measu res 1.6 x 1.0 cm. Neoplasm is not excluded and consider tissue diagnosis. Mass is well-circumscribed. No additional solid lesions are detected. Simple appearing cyst identified upper pole left kidney me asuring 9.8 mm. 2 mm cortical cyst lower pole left kidney. No evidence for hydronephrosis or nephroli thiasis. The liver is free of solid or cystic mass. Gallbladder is free of cholelithiasis. No pancreatic lesions identified. Spleen and adrenal glands are unremarkable. Abdominal aorta is of normal caliber. No evidence for adenopathy. IMPRESSION: 1. Nonspecific solid lesion right kidney at its upper pole. Malignancy is not excluded. Uncal cytoma additional consideration. Consider tissue diagnosis.
== END | disposition home or self-care (01) ==
LOC: RADMRIMAIN 09:19
PROVIDERS: ATTEND Urology
DX: N28.9 Disorder of kidney and ureter, unspecified (principal)
CPT/HCPCS: 74183; A9585

== ENCOUNTER → 2019-01-09 | Outpatient (CLI) | payer BC ==
[2019-01-09 16:55] LABS: ALT 31 U/L (21-72); AST 49 U/L (17-59); African American GFR (CKD) >90 (>60 ml/min/1.73 sqM); Albumin 4.5 g/dL (3.5-5.0); Alkaline Phosphatase 71 U/L (38-126); Anion Gap 7 mmol/L; Blood Urea Nitrogen 21 mg/dL (9-20); Calcium 9.1 mg/dL (8.4-10.2); Carbon Dioxide 29 mmol/L (22-30); Chloride 104 mmol/L (98-107); Glucose 89 mg/dL (74-99); Sodium 140 mmol/L (137-145); Total Protein 7.8 g/dL (6.3-8.2)
[2019-01-09 17:06] LABS: Potassium 4.6 mmol/L (3.5-5.1)
--- NOTE | 2019-01-10 17:05 | CT ---
EXAMINATION TYPE: CT abdomen pelvis wo con DATE OF EXAM: 01/09/2019 COMPARISON: 03/06/2018 INDICATION: Kidney ca f/u. IV was not obtainable on pt, study changed to without. DLP: 247.80 mGycm, Automated exposure control for dose reduction was used. CONTRAST: 0 mL of Isovue 300. Study performed with Oral Contrast TECHNIQUE: Axial images were obtained from above the diaphragm to the pubic rami in the axial plane a t 5 mm thick sections. Reconstructed images are reviewed on the computer in the coronal plane. FINDINGS: Limited CT sections are obtained the lung bases. The lung bases are clear. There is a pericardial e ffusion with a depth of 1.8 cm (less than 2.[address] ABDOMEN: Liver: Normal Spleen: Normal Pancreas: Normal Adrenal glands: The adrenal glands are normal. Gallbladder: Normal Kidneys: No masses are evident. No hydronephrosis is present. No cysts are present. There is some increased density along the superior medial margin of the right kidney which may be suture. Dislocati on of the patient's previous cancer. No recurrent masses are identified. Aorta: Vascular calcification is within the aorta. Inferior vena cava: Normal. CT PELVIS: There may be some mild prominence of the jejunal loops distended with oral contrast. Oral contrast ex tends to the ascending colon. There are loops of bowel which are incompletely distended or lack oral contrast limiting their evaluation. Appendix: Identified. No suspicious tubular structures are evident. Urinary bladder: Normal Genitourinary structures: Prostate is prominent. Osseous structures: There is a 0.9 cm sclerotic nodule with smooth margins within the superior L1 reg ion. This is stable from 03/06/2018. Some endplate changes are present T12. IMPRESSIONS: 1. No recurrent superior right renal mass. Some underlying suture at the prior resection may be pres ent.
== END | disposition home or self-care (01) ==
LOC: RADCTMAIN 15:55
PROVIDERS: ATTEND Urology
DX: C64.9 Malignant neoplasm of unspecified kidney, except renal pelvis (principal)
CPT/HCPCS: 74176; 80053

== ENCOUNTER → 2020-03-13 | Outpatient (CLI) | payer BC ==
--- NOTE | 2020-03-13 10:44 | US ---
EXAMINATION TYPE: US kidneys/renal and bladder DATE OF EXAM: 03/13/2020 COMPARISON: CT dated 01/09/2019 CLINICAL HISTORY: C64.1 Right Renal Ca. H/O right renal CA with lesion removal 1 1/[address]'s order, do not image bladder EXAM MEASUREMENTS: Right Kidney: 9.8 x 4.0 x 4.7 cm Left Kidney: 10.2 x 5.2 x 4.8 cm Right Kidney: Appeared wnl , there is extrarenal pelvis. Left Kidney: Appeared wnl, lower pole gassed out Bladder: Not visualized per Dr's order There is no evidence for hydronephrosis at this point in time. No nephrolithiasis is seen. No bryn s are identified. IMPRESSION: No evident recurrence
== END | disposition home or self-care (01) ==
LOC: RADUSWWP 08:55
PROVIDERS: ATTEND Urology
DX: C64.1 Malignant neoplasm of right kidney, except renal pelvis (principal); Z91.09 Other allergy status, other than to drugs and biological substances; Z91.048 Other nonmedicinal substance allergy status; Z88.8 Allergy status to other drugs, medicaments and biological substances
CPT/HCPCS: 76770

== ENCOUNTER → 2021-04-07 | Outpatient (CLI) | payer BC ==
--- NOTE | 2021-04-07 16:05 | US ---
EXAMINATION TYPE: US kidneys/renal and bladder DATE OF EXAM: 04/07/2021 COMPARISON: US 03/13/2020. CT 01/09/2019 CLINICAL HISTORY: C64.9 Renal cancer. Hx of renal cancer of the right kidney upper pole EXAM MEASUREMENTS: Right Kidney: 9.9x4.0x4.6 cm Left Kidney: 10.3x5.3x4.4 cm Right Kidney: Appears WNL; prominent pelvis Superior cortex is not well visualized. This however is stable from the comparison ultrasound. Left Kidney: Anechoic focus with possible septation upper pole 1.2 x 0.9 x 1.2 Bladder: No bladder fill prep per Dr. Draper IMPRESSION: 1. There appears to be a septated cyst the superior pole left kidney. 2. No suspicious recurrent right renal mass is identified. If additional evaluation is required, cons ider MRI.
== END | disposition home or self-care (01) ==
LOC: RADUSWWP 14:53
PROVIDERS: ATTEND Urology
DX: C64.9 Malignant neoplasm of unspecified kidney, except renal pelvis (principal)
CPT/HCPCS: 76770

== ENCOUNTER → 2022-04-02 | Outpatient (CLI) | payer BC ==
--- NOTE | 2022-04-04 22:42 | US ---
EXAMINATION TYPE: US renals and bladder DATE OF EXAM: 04/02/2022 COMPARISON: CT 2019 CLINICAL HISTORY: C64.1 RENAL CA RIGHT. H/O right renal CA with surgical removal of right renal lesio n upper pole EXAM MEASUREMENTS: Right Kidney: 9.2 x 4.1 x 4.8 cm Left Kidney: 10.0 x 5.1 x 4.6 cm Right Kidney: No evidence of hydro, appeared wnl/ upper pole cortex difficult to delineate post surgi hedy as visualized on prior exams Left Kidney: No evidence of hydro, cyst with small septation upper pole as visualized on prior= 1.2 x 1.0 x 0.9 cm Bladder: Not imaged, pt not given prep to fill bladder There is no evidence for hydronephrosis at this point in time. No nephrolithiasis is seen. Stable 1. 0 cm thin-walled cyst with thin septa upper pole portion left kidney. Poorly marginated upper pole ri ght kidney redemonstrated. The urinary bladder is not adequately distended. IMPRESSION: No concerning new solid or cystic renal mass seen.
== END | disposition home or self-care (01) ==
LOC: RADUSWWP 15:57
PROVIDERS: ATTEND Urology
DX: C64.1 Malignant neoplasm of right kidney, except renal pelvis (principal); Z85.528 Personal history of other malignant neoplasm of kidney
CPT/HCPCS: 76770

== ENCOUNTER → 2023-04-08 | Outpatient (CLI) | payer BC ==
--- NOTE | 2023-04-08 12:19 | CA ---
Exercise Stress Test Report Name: Cristian Gill Exam Date: 04/08/2023 11:13 Exam Location: [place] Stress Ht (in): 72 Wt (lb): 130 BSA: 1.77 Ordering Phys: Deo Olmos DO Referring Phys: Eloise Campa [facility] Technologist: OMAR FERRERA Age: 62 Gender: M : 1960 Procedure CPT: Indications: R00.2 palpitations ICD-10 Codes: Patient History: PALPITATIONS, HTN, ASTHMA Medications: Meds past 24 hrs: Pretest Chest Pain: STRESS TEST William Protocol Exercise Duration (min:sec): 07:[address] Depressions (mm): Angina Score: Wilcox Score: Resting HR (bpm): 98 Peak HR (bpm): 152 Resting BP (mmHg): 132 / 79 Peak BP (mmHg): 186 / 61 MPHR: 158 Target HR: 134 % MPHR: 96 METS: 10.1 Total Dose: Peak Dose: Atropine: Double Product: 65050 BP Response: Stress Termination: MAX EXERTION/TARGET HR Stress Symptoms: NO SYMPTOMS Stress Summary: ECG ANALYSIS Resting ECG: Normal sinus rhythm normal axis normal intervals Stress ECG: Patient exercised on William protocol for 7 minutes and 46 seconds achieving 85% of predicted maximal heart rate without chest pain or diagnostic ST segment depression CONCLUSIONS About average exercise tolerance Negative stress test by EKG criteria Dr. Ki Figueroa MD (Electronically Signed) Final Date: 08 April 2023 12:18
== END | disposition home or self-care (01) ==
LOC: RADNMMAIN 10:47
PROVIDERS: ATTEND Family Medicine
DX: J45.909 Unspecified asthma, uncomplicated (principal); I10 Essential (primary) hypertension; R00.2 Palpitations
CPT/HCPCS: 93017

== ENCOUNTER 2024-03-13 10:32 | Observation (INO) | payer BC ==
--- NOTE | 2024-03-13 11:17 | ED ---
Arrhythmia/Palpitations HPI - General Chief Complaint: Arrhythmia/Palpitations Stated Complaint: TACHY Time Seen by Provider: 03/13/24 10:39 Source: patient, RN notes reviewed Mode of arrival: ambulatory Limitations: no limitations - History of Present Illness Initial Comments: This is a 63-year-old male who presents to the emergency department for palpi tations. States that yesterday he started to feel like his heart was racing. He has had feelings like this before, but states that it always resolves very quickly on its own. However, since last night this has essentially persisted. Denies any chest pain associated with this. States that he feels somewhat short of breath but is unsure if this is much worse than normal. He does report some increasing fatigue. Denies any history of A-fib/a flutter. Not taking any blood thinners. MD Complaint: palpitations - Related Data Home Medications Medication Instructions Recorded Confirmed Cholecalciferol [Vitamin D3 (25 25 mcg PO DAILY 03/13/24 03/13/24 Mcg = 1000 Iu)] Liquid Iron(Unknown Dose) 1 dose PO DAILY 03/13/24 03/13/24 Losartan [Cozaar] 25 mg PO DAILY 03/13/24 03/13/24 Multivitamins, Thera [Multivitamin 1 tab PO DAILY 03/13/24 03/13/24 (formulary)] Allergies Allergy/AdvReac Type Severity Reaction Status Date / Time mold Allergy sneezing, Verified 03/13/24 12:24 runny nose, watery eyes, congestion polyethylene glycol 3350 Allergy Rash/Hives Verified 03/13/24 12:24 [From Miralax] dry grass Allergy sneezing, Uncoded 03/13/24 12:24 runny nose, watery eyes, congestion dust Allergy sneezing, Uncoded 03/13/24 12:24 runny nose, watery eyes, congestion pet dander Allergy sneezing, Uncoded 03/13/24 12:24 runny nose, watery eyes, congestion Review of Systems ROS Statement: Those systems with pertinent positive or pertinent negative responses have been documented in the HPI. ROS Other: All systems not noted in ROS Statement are negative. Past Medical History Past Medical History: Cancer, CVA/TIA Additional Past Medical History / Comment(s): HX OF TESTICULAR CA, HAD SX, RADIATION AND CHEMO, HX OF TYRON TINNITUS. HX TIA, NO RESIDUAL EFFECTS History of Any Multi-Drug Resistant Organisms: None Reported Additional Past Surgical History / Comment(s): TESTICULAR CANCER SX Past Anesthesia/Blood Transfusion Reactions: No Reported Reaction Past Psychological History: No Psychological Hx Reported Smoking Status: Never smoker Past Alcohol Use History: None Reported Past Drug Use History: None Reported - Past Family History Father Family Medical History: Cancer Additional Family Medical History / Comment(s): LEUKEMIA Mother Family Medical History: No Reported History Additional Family Medical History / Comment(s): healthy General Exam Limitations: no limitations General appearance: alert, in no apparent distress Head exam: Present: atraumatic, normocephalic, normal inspection Respiratory exam: Present: normal lung sounds bilaterally. Absent: respiratory distress, wheezes, rales, rhonchi, stridor Cardiovascular Exam: Present: normal rhythm, tachycardia Neurological exam: Present: alert, oriented X3, CN II-XII intact Psychiatric exam: Present: normal affect, normal mood Skin exam: Present: warm, dry, intact, normal color. Absent: rash Course Vital Signs 03/13/24 03/13/24 03/13/24 10:35 10:43 12:03 Temperature 97.9 F 97.3 F L Pulse Rate 138 H 135 H 133 H Respiratory 20 18 18 Rate Blood Pressure 120/75 137/83 129/84 O2 Sat by Pulse 98 98 99 Oximetry 03/13/24 12:50 Temperature Pulse Rate 85 Respiratory 18 Rate Blood Pressure 117/77 O2 Sat by Pulse 98 Oximetry Medical Decision Making - Medical Decision Making This is a 63 year old male who presents to the emergency department for palpitations. Was pt. sent in by a medical professional or institution? @ -No Did you speak to anyone other than the patient for history? @ -No Did you review nursing and triage notes? @ -Yes, and I agree, it is accurate with regards to the patient's symptoms. Were old charts reviewed? @ -No Differential Diagnosis? @ -Differential Palpitations Ventricular arrhythmias, atrial arrhythmias, myocardial infarction, anemia, thyrotoxicosis, electrolyte imbalance, hypokalemia, pulmonary embolism, pulmonary disease, drugs, alcohol, anxiety, stress.... This is not meant to be an all-inclusive list. EKG interpreted by me (3pts min.)? @ -EKG interpreted by me demonstrating the following: A flutter/tachycardia with RVR. Ventricular rate 134 bpm, QRS duration 89 ms, QTc 354 ms. X-rays interpreted by me (1pt min.)? @ -Chest x-ray obtained, my interpretation identifies no localized consolidations or infiltrates. CT interpreted by me (1pt min.)? @ -CTA of the chest obtained. My interpretation identifies no evidence of a pulmonary embolus. U/S interpreted by me (1pt. min.)? @ -Not obtained What testing was considered but not performed? (CT, X-rays, U/S, labs)? Why? @ -None What meds were considered but not given? Why? @ -None Did you discuss the management of the patient with other professionals? @ -Yes, Dr. Maradiaga, who accepts the patient for admission Did you reconcile home meds? @ -Yes Was smoking cessation discussed for >3mins.? @ -No Was critical care preformed (if so, how long)? @ -Yes, >35 minutes Were there social determinants of health that impacted care today? How? (Homelessness, low income, unemployed, alcoholism, drug addiction, transportation, low edu. Level, literacy, decrease access to med. care, skilled nursing, rehab)? @ -No Was there de-escalation of care discussed even if they declined? (Discuss DNR or withdrawal of care, Hospice)? @ -No What co-morbidities impacted this encounter? (DM, HTN, Smoking, COPD, CAD, Cancer, CVA, Hep., AIDS, mental health diagnosis, sleep apnea, morbid obesity)? @ -HTN Was patient admitted / discharged? @ -Admitted. Lab work demonstrates signs of dehydration, an elevated D-dimer of 0.73, and elevated BNP of 2300. Chest x-ray reveals no acute process. CTA of the chest obtained revealing no evidence of a pulmonary embolus. He does have a right middle lobe pulmonary nodule that will need follow-up. Heart rate was in the 130s when he arrived and he was started on Cardizem. Heart rate improved into the 80s and this was discontinued. However, shortly afterwards his heart rate shot back up into the 130s. Cardizem then resumed. He was started on heparin as well. Patient admitted to medicine for a-flutter and palpitations. Consult placed for cardiology. Case discussed with ED attending, Dr. Russell. Undiagnosed new problem with uncertain prognosis? @ -None Drug Therapy requiring intensive monitoring for toxicity (Heparin, Nitro, Insulin, Cardizem)? @ -Cardizem and heparin Were any procedures done? @ -None Diagnosis/symptom? @ -A-flutter, palpitations Acute, or Chronic, or Acute on Chronic? @ -Acute Uncomplicated (without systemic symptoms) or Complicated (systemic symptoms)? @ -Complicated Side effects of treatment? @ -None Exacerbation, Progression, or Severe Exacerbation] @ -Not applicable Poses a threat to life or bodily function? @ -Yes, can lead to life-threatening arrhythmias as well as blood clots - Lab Data Result diagrams: 03/13/24 11:39 03/13/24 11:39 Lab Results 03/13/24 03/13/24 03/13/24 Range/Units 11:00 11:39 11:39 WBC 7.4 (3.8-10.6) k/uL RBC 4.72 (4.30-5.90) m/uL Hgb 14.6 (13.0-17.5) gm/dL Hct 44.9 (39.0-53.0) % MCV 95.1 (80.0-100.0) fL MCH 31.0 (25.0-35.0) pg MCHC 32.6 (31.0-37.0) g/dL RDW 13.3 (11.5-15.5) % Plt Count 264 (150-450) k/uL MPV 7.2 Neutrophils % 62 % Lymphocytes % 23 % Monocytes % 8 % Eosinophils % 4 % Basophils % 1 % Neutrophils # 4.6 (1.3-7.7) k/uL Lymphocytes # 1.7 (1.0-4.8) k/uL Monocytes # 0.6 (0-1.0) k/uL Eosinophils # 0.3 (0-0.7) k/uL Basophils # 0.1 (0-0.2) k/uL PT 9.5 L (10.0-12.5) sec INR 0.8 (<1.2) APTT 24.0 (22.0-30.0) sec D-Dimer 0.73 H (<0.60) mg/L FEU Sodium (137-145) mmol/L Potassium (3.5-5.1) mmol/L Chloride (98-107) mmol/L Carbon Dioxide (22-30) mmol/L Anion Gap mmol/L BUN (9-20) mg/dL Creatinine (0.66-1.25) mg/dL Est GFR (CKD-EPI)AfAm (>60 ml/min/1.73 sqM) Est GFR (CKD-EPI)NonAf (>60 ml/min/1.73 sqM) Glucose (74-99) mg/dL Calcium (8.4-10.2) mg/dL Magnesium (1.6-2.3) mg/dL Total Bilirubin (0.2-1.3) mg/dL AST (17-59) U/L ALT (4-49) U/L Alkaline Phosphatase (38-126) U/L Troponin I (0.000-0.034) ng/mL NT-Pro-B Natriuret Pep pg/mL Total Protein (6.3-8.2) g/dL Albumin (3.5-5.0) g/dL TSH (0.465-4.680) mIU/L Urine Color Colorless Urine Appearance Clear (Clear) Urine pH 7.5 (5.0-8.0) Ur Specific [place] 1.013 (1.001-1.035) Urine Protein Negative (Negative) Urine Glucose (UA) Negative (Negative) Urine Ketones Negative (Negative) Urine Blood Negative (Negative) Urine Nitrite Negative (Negative) Urine Bilirubin Negative (Negative) Urine Urobilinogen <2.0 (<2.0) mg/dL Ur Leukocyte Esterase Negative (Negative) 03/13/24 03/13/24 Range/Units 11:39 11:39 WBC (3.8-10.6) k/uL RBC (4.30-5.90) m/uL Hgb (13.0-17.5) gm/dL Hct (39.0-53.0) % MCV (80.0-100.0) fL MCH (25.0-35.0) pg MCHC (31.0-37.0) g/dL RDW (11.5-15.5) % Plt Count (150-450) k/uL MPV Neutrophils % % Lymphocytes % % Monocytes % % Eosinophils % % Basophils % % Neutrophils # (1.3-7.7) k/uL Lymphocytes # (1.0-4.8) k/uL Monocytes # (0-1.0) k/uL Eosinophils # (0-0.7) k/uL Basophils # (0-0.2) k/uL PT (10.0-12.5) sec INR (<1.2) APTT (22.0-30.0) sec D-Dimer (<0.60) mg/L FEU Sodium 139 (137-145) mmol/L Potassium 5.4 H (3.5-5.1) mmol/L Chloride 102 (98-107) mmol/L Carbon Dioxide 29 (22-30) mmol/L Anion Gap 8 mmol/L BUN 29 H (9-20) mg/dL Creatinine 1.13 (0.66-1.25) mg/dL Est GFR (CKD-EPI)AfAm 80 (>60 ml/min/1.73 sqM) Est GFR (CKD-EPI)NonAf 69 (>60 ml/min/1.73 sqM) Glucose 106 H (74-99) mg/dL Calcium 9.5 (8.4-10.2) mg/dL Magnesium 2.1 (1.6-2.3) mg/dL Total Bilirubin 1.1 (0.2-1.3) mg/dL AST 36 (17-59) U/L ALT 26 (4-49) U/L Alkaline Phosphatase 57 (38-126) U/L Troponin I 0.012 (0.000-0.034) ng/mL NT-Pro-B Natriuret Pep 2300 pg/mL Total Protein 8.4 H (6.3-8.2) g/dL Albumin 4.9 (3.5-5.0) g/dL TSH 2.610 (0.465-4.680) mIU/L Urine Color Urine Appearance (Clear) Urine pH (5.0-8.0) Ur Specific [place] (1.001-1.035) Urine Protein (Negative) Urine Glucose (UA) (Negative) Urine Ketones (Negative) Urine Blood (Negative) Urine Nitrite (Negative) Urine Bilirubin (Negative) Urine Urobilinogen (<2.0) mg/dL Ur Leukocyte Esterase (Negative) - Radiology Data Radiology results: report reviewed, image reviewed Critical Care Time Critical Care Time: Yes Critical Care Time: >35 minutes Disposition Clinical Impression: Atrial flutter, Palpitations Disposition: ADMITTED IP TO THIS HOSP
[2024-03-13 12:04] LABS: Basophils # (A) 0.1 k/uL (0-0.2); Basophils % (A) 1 %; Eosinophils # (A) 0.3 k/uL (0-0.7); Eosinophils % (A) 4 %; HCT 44.9 % (39.0-53.0); HGB 14.6 gm/dL (13.0-17.5); Lymphocytes # (A) 1.7 k/uL (1.0-4.8); Lymphocytes % (A) 23 %; MCHC 32.6 g/dL (31.0-37.0); MCV 95.1 fL (80.0-100.0); Mean Platelet Volume 7.2; Monocytes # (A) 0.6 k/uL (0-1.0); Monocytes % (A) 8 %; Neutrophils # (A) 4.6 k/uL (1.3-7.7); Neutrophils % (A) 62 %; Platelet Count 264 k/uL (150-450); RBC 4.72 m/uL (4.30-5.90); RDW 13.3 % (11.5-15.5); WBC 7.4 k/uL (3.8-10.6)
[2024-03-13] MEDS: SODIUM CHLORIDE 0.9% 1,000 ML IV STA (12:04)
[2024-03-13] MEDS: DILTIAZEM 125 MG in SODIUM CHLORIDE 0.9% 100 ML IV SCH (12:11)
[2024-03-13] MEDS: DILTIAZEM DRIP BOLUS FROM BAG 1 MG SOLN IV ONE (12:11)
[2024-03-13 12:12] LABS: ALT 26 U/L (4-49); African American GFR (CKD) 80 (>60 ml/min/1.73 sqM); Albumin 4.9 g/dL (3.5-5.0); Anion Gap 8 mmol/L; Blood Urea Nitrogen 29 mg/dL (9-20); Calcium 9.5 mg/dL (8.4-10.2); Carbon Dioxide 29 mmol/L (22-30); Chloride 102 mmol/L (98-107); Glucose 106 mg/dL (74-99); Non-African American GFR(CKD) 69 (>60 ml/min/1.73 sqM); Sodium 139 mmol/L (137-145); Total Bilirubin 1.1 mg/dL (0.2-1.3); Total Protein 8.4 g/dL (6.3-8.2)
[2024-03-13 12:16] LABS: INR 0.8 (<1.2); Prothrombin Time 9.5 sec (10.0-12.5)
[2024-03-13 12:19] LABS: Appearance,Urine Clear (Clear); Bilirubin,Urine Negative (Negative); Blood,Urine Negative (Negative); Color,Urine Colorless; Glucose,Urine (UA) Negative (Negative); Ketones,Urine Negative (Negative); Leukocyte Esterase,Urine Negative (Negative); Nitrite,Urine Negative (Negative); PH, Urine 7.5 (5.0-8.0); Protein,Urine Negative (Negative); Specific Gravity,Urine 1.013 (1.001-1.035); Urobilinogen,Urine <2.0 mg/dL (<2.0)
[2024-03-13 12:20] LABS: NT-Pro-B-Type Natriuretic Pept 2300 pg/mL
[2024-03-13 12:47] LABS: AST 36 U/L (17-59); Alkaline Phosphatase 57 U/L (38-126); Magnesium 2.1 mg/dL (1.6-2.3); Potassium 5.4 mmol/L (3.5-5.1)
--- NOTE | 2024-03-13 12:58 | XR ---
EXAMINATION TYPE: XR chest 2V DATE OF EXAM: 03/13/2024 12:37 PM COMPARISON: 06/12/2015 CLINICAL INDICATION: Male, 63 years old with history of dysrhythmia, TECHNIQUE: XR chest 2V view(s) obtained. FINDINGS: The heart size is normal. The pulmonary vasculature is normal. The lungs are clear. There appears to be some biapical thickening present, stable from 2015. IMPRESSION: 1. No acute pulmonary process. [facility], , 03/13/2024 12:55 PM
--- NOTE | 2024-03-13 14:11 | CT ---
EXAMINATION TYPE: CT chest angio for PE DATE OF EXAM: 03/13/2024 2:00 PM COMPARISON: Chest radiograph same day. CLINICAL INDICATION: Male, 63 years old with history of SOFIA, elevated d-dimer; SOFIA, Elevated D-dimer TECHNIQUE/CONTRAST: CTA scan of the thorax is performed without and with IV Contrast, patient injected with 100 ml mL of Isovue 370, MIP images are created and reviewed these are created on a separate workstation.. CT DLP: 325.9 mGycm, Automated exposure control for dose reduction was used. FINDINGS: Pulmonary Artery: There is no evidence for a filling defect within the pulmonary vasculature to sugge st acute pulmonary embolism. The pulmonary artery is of normal size. Lungs/Pleura: No evidence of focal consolidation, pleural effusion or pneumothorax. Right middle lobe 9 mm pulmonary nodule series 411 image 107 apical scarring bilaterally. Left upper lung pulmonary no dule measuring 7 mm series 411 image 77. Right middle lobe central pulmonary nodule seen on sagittal series 403 image 43 measuring 5 mm. Right lower lobe calcified granuloma. Airway: Large airways are patent. Heart: Heart is within normal limits for size. Vasculature: No evidence of aortic aneurysm. Mediastinum: No gross evidence of adenopathy. Musculoskeletal: No acute osseous abnormalities Soft Tissues/lymph nodes: Unremarkable. Lower neck: No significant findings. Upper Abdomen: No significant findings. IMPRESSION: 1. No evidence of pulmonary embolism. 2. Right middle lobe pulmonary nodule short-term follow-up in 6-12 months recommended to ensure stabi lity. Months recommended Follow up recommendations for incidental pulmonary nodules, if there are any, are per [employer] or [employer]. https://radiopaedia.org/articles/btbazklrpa-pxfnsug-hcyqrvhkf-mbyqyh-[email or web address]-[email or web address]?lang=us [facility], , 03/13/2024 2:09 PM
[2024-03-13] MEDS ORDERED: ACETAMINOPHEN TAB 325 MG TAB PO PRN (14:41)
[2024-03-13] MEDS ORDERED: NALOXONE 0.4 MG/ML 1 ML VIAL IV PRN (14:41)
[2024-03-13] MEDS ORDERED: ONDANSETRON 4 MG/2 ML VIAL IVP PRN (14:41)
[2024-03-13] MEDS ORDERED: MORPHINE SULFATE 4 MG/ML SYRINGE IV PRN (14:41)
[2024-03-13] MEDS ORDERED: HYDROcodone/APAP 5-325MG 1 EACH TAB PO PRN (14:41)
[2024-03-13] MEDS: HEPARIN SODIUM 1,000 UN/ML (10ML VL) IV ONE (15:29)
[2024-03-13] MEDS: HEPARIN SOD,PORK IN 0.45% NACL 25,000 UNIT in 0.45% NACL 1 250ML.BAG IV SCH (15:30)
[2024-03-13] MEDS: HEPARIN SODIUM 1,000 UN/ML (10ML VL) IV PRN (22:58)
--- NOTE | 2024-03-14 00:04 | P.HPIM ---
History of Present Illness H&P Date: 03/13/24 Patient is a 63-year-old male with a past medical history of CVA/TIA, history of testicular cancer s/p radiation and chemotherapy and history of tinnitus and TIA with no residual defects presents to ER with complaints of palpitations. Patient states that yesterday he started feels like his heart was racing. Apparently has been having on and off symptoms for the past 1 week. But resolved quickly on its own. Since last night his symptoms persisted which made him to come to ER. Otherwise denied any complaints of chest pain associate with that. [place] shortness of breath. No cough or sputum production. No fever no chills. Denied any recent illnesses. No prior history of atrial flutter/fi brillation. Chest x-ray showed no acute pulmonary process CTA chest showed no evidence of PE. Right middle lobe pulmonary nodule short- term follow-up in 6 to 12 months recommended to ensure stability. EKG showed atrial flutter/tachycardia with rapid ventricular response. Laboratory data showed WBC 7.4 hemoglobin 14.6 and platelets 264 D-dimer 0.73 sodium 139 potassium 5.4 with slight hemolysis BUN BUN 29 and creatinine 1.13 and TSH within normal limits. proBNP 2300 troponin x 3 negative urinalysis negative for infection. Review of Systems Constitutional: Patient denies any fever or chills . No generalized weakness or weight loss. Abdomen: Patient denied nausea vomiting and diarrhea and abdominal pain. Cardiovascular: Patient denies any chest pain or short of breath. Patient does have palpitations. Respiratory: patient denied any cough or sputum production. No shortness of breath Neurologic: Patient denied any numbness or tingling. no headache. Musculoskeletal: Patient denies any complaints of joint swelling or deformity. Skin: Negative Psychiatric: Negative Endocrine: No heat or cold intolerance. No recent weight gain. Genitourinary: No dysuria or hematuria. All other 14 point ROS negative except the above Past Medical History Past Medical History: Cancer, CVA/TIA Additional Past Medical History / Comment(s): HX OF TESTICULAR CA, HAD SX, RADIATION AND CHEMO, HX OF TYRON TINNITUS. HX TIA, NO RESIDUAL EFFECTS History of Any Multi-Drug Resistant Organisms: None Reported Additional Past Surgical History / Comment(s): TESTICULAR CANCER SX Past Anesthesia/Blood Transfusion Reactions: No Reported Reaction Past Psychological History: No Psychological Hx Reported Smoking Status: Never smoker Past Alcohol Use History: None Reported Past Drug Use History: None Reported - Past Family History Father Family Medical History: Cancer Additional Family Medical History / Comment(s): LEUKEMIA Mother Family Medical History: No Reported History Additional Family Medical History / Comment(s): healthy Medications and Allergies Home Medications Medication Instructions Recorded Confirmed Type Cholecalciferol [Vitamin D3 (25 25 mcg PO DAILY 03/13/24 03/13/24 History Mcg = 1000 Iu)] Liquid Iron(Unknown Dose) 1 dose PO DAILY 03/13/24 03/13/24 History Multivitamins, Thera [Multivitamin 1 tab PO DAILY 03/13/24 03/13/24 History (formulary)] Apixaban [Eliquis] 5 mg PO BID #60 tab 03/14/24 Rx Diltiazem Cd [Cardizem CD] 120 mg PO DAILY #30 cap 03/14/24 Rx Allergies Allergy/AdvReac Type Severity Reaction Status Date / Time mold Allergy sneezing, Verified 03/13/24 12:24 runny nose, watery eyes, congestion polyethylene glycol 3350 Allergy Rash/Hives Verified 03/13/24 12:24 [From Miralax] dry grass Allergy sneezing, Uncoded 03/13/24 12:24 runny nose, watery eyes, congestion dust Allergy sneezing, Uncoded 03/13/24 12:24 runny nose, watery eyes, congestion pet dander Allergy sneezing, Uncoded 03/13/24 12:24 runny nose, watery eyes, congestion Physical Exam Vitals: Vital Signs Temp Pulse Resp BP Pulse Ox 03/13/24 19:00 135 H 14 138/69 96 03/13/24 18:00 90 15 131/80 97 03/13/24 17:00 89 13 121/79 98 03/13/24 16:38 89 127/82 98 03/13/24 16:00 89 10 L 130/78 03/13/24 15:00 131 H 17 132/82 100 03/13/24 14:00 128 H 11 L 98 03/13/24 13:00 74 7 L 117/77 99 03/13/24 12:50 85 18 117/77 98 03/13/24 12:03 133 H 18 129/84 99 03/13/24 12:00 134 H 10 L 142/83 98 03/13/24 11:00 137/83 03/13/24 10:43 97.3 F L 135 H 18 137/83 99 03/13/24 10:35 97.9 F 138 H 20 120/75 98 Intake and Output 03/13/24 03/13/24 03/13/24 06:59 14:59 22:59 Intake Total 3.417 Balance 3.417 Intake: Intake, IV Titration 3.417 Amount Diltiazem 125 mg In 3.417 Sodium Chloride 0.9% 100 ml @ 5 MG/HR 5 mls/hr IV .Q24H [facility] Rx#:[id number] Other: Weight 61.235 kg PHYSICAL EXAMINATION: Patient is lying in the bed comfortably, no acute distress, awake alert and oriented.. HEENT: Normocephalic. Neck is supple. Pupils reactive. Nostrils clear. Oral cavity is moist. Neck reveals no JVD, carotid bruits, or thyromegaly. CHEST EXAMINATION: Trachea is central. Symmetrical expansion. Lung correa clear to auscultation and percussion. CARDIAC: Normal S1, S2 with no gallops. No murmurs ABDOMEN: Soft. Bowel sounds normal. No organomegaly. No abdominal bruits. Extremities: reveal no edema. No clubbing or cyanosis Neurologically awake, alert, oriented x3 with well-coordinated movements. No focal deficits noted Skin: No rash or skin lesions. Psychiatric: Coperative. Nonsuicidal Musculoskeletal: No joint swelling or deformity. Normal range of motion. 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 2D echocardiogram was ordered. Cardiology consult. Current with home medications and follow-up closely. Patient was given IV hydration in the ER. Time with Patient: Greater than 30
[2024-03-14] MEDS: CHOLECALCIFEROL 25 MCG (1000 IU) TABLET PO SCH (09:15)
[2024-03-14] MEDS: MULTIVITAMINS, THERA 1 EACH TAB PO SCH (09:15)
[2024-03-14] MEDS: LOSARTAN 25 MG TAB PO SCH (09:15)
[2024-03-14] MEDS: FERROUS SULFATE ORAL ELIXIR 300 MG/5 ML CUP PO SCH (09:15)
[2024-03-14] MEDS: PANTOPRAZOLE 40 MG/10 ML VIAL IV SCH (09:15)
--- NOTE | 2024-03-14 11:17 | P.CRDCN ---
History of Present Illness Consult date: 03/14/24 Consult reason: atrial flutter History of present illness: This is a 63-year-old male patient with past medical history of testicular cancer, kidney tumor, hypertension. We have been asked to evaluate the patient for new onset of atrial flutter. Patient states that he could feel that he was in a rapid heart rate and felt like his chest was achy, dizziness and shortness of breath. Onset of symptoms or on Tuesday. He denies any recent infection or illness. He does state he has been under increased stress. He has not been on any recent chemotherapy. He denies any weight change. He denies any alcohol use recently and only drinks occasionally. He denies any coffee intake. No smoking history no illicit drug use. Patient has been started on Cardizem drip and heparin drip. Discussed transitioning medications to oral and as an outp atient would consider possible cardioversion and possible ablation down the road. EKG: Atrial flutter at 135 bpm, telemetry was rate controlled in the 80s atrial flutter, repeat EKG sinus rhythm. Chest x-ray: No acute process CTA of the chest no PE, right middle lobe pulmonary nodule Laboratory studies: WBC 7.4, hemoglobin 14.6, D-dimer 0.73. BNP 2300, troponin negative x 3. Potassium 5.4. Creatinine 1.13. Home cardiac medications: Losartan 25 mg daily Echocardiogram performed in the office in 2011 revealed normal LV size and normal function. Mild tricuspid regurgitation. Mild pulmonic regurgitation. Cardiolite stress test performed in the office in 2012 revealed negative stress test with excellent exercise capacity. Normal perfusion except a hotspot noted in the lateral wall both on the stress test and rest images. Gated images showed normal wall motion and thickening. Review Of Systems: At the time of my exam: CONSTITUTIONAL: Denies fever or chills. HEENT: Denies blurred vision, vision changes, or eye pain. Denies hemoptysis CARDIOVASCULAR: Denies chest pain. Denies orthopnea. Denies PND. Denies palpitations RESPIRATORY: Denies shortness of breath. GASTROINTESTINAL: Denies abdominal pain. Denies nausea or vomiting. HEMATOLOGIC: Denies bleeding disorders. GENITOURINARY: Denies any blood in urine. SKIN: Denies puritis. Denies rash. Physical examination: Gen: This is a 63-year-old male in no acute distress VS: reviewed HEENT: Head is atraumatic, normocephalic. Pupils equal, round. Sclerae is anicteric. NECK: Supple. No JVD. LUNGS: Clear to auscultation. No wheezes or rhonchi. No intercostal retractions. HEART: Regular rate and rhythm. No murmur. ABDOMEN: Soft No tenderness. EXTREMITIES: No pedal edema. No calf tenderness. NEUROLOGICAL: Patient is awake, alert and oriented x3. Assessment: New onset paroxysmal typical atrial flutter, converted to sinus rhythm History of testicular cancer status post surgery, radiation and chemotherapy with metastatic disease History of kidney tumor resection Plan: Discontinue losartan Start patient on Cardizem CD 120 mg daily Start patient on Eliquis 5 mg twice daily Discontinue Cardizem drip and heparin drip Obtain 2-D echocardiogram and Doppler study to assess cardiac structure and function Patient does not need to wait for echocardiogram and this can be done in the office Patient is cleared for discharge home on the above medications. Nurse practitioner note has been reviewed, I agree with documented findings and plan of care. Patient was seen and examined. Past Medical History Past Medical History: Cancer, CVA/TIA Additional Past Medical History / Comment(s): HX OF TESTICULAR CA, HAD SX, RADIATION AND CHEMO, HX OF TYRON TINNITUS. HX TIA, NO RESIDUAL EFFECTS History of Any Multi-Drug Resistant Organisms: None Reported Additional Past Surgical History / Comment(s): TESTICULAR CANCER SX, tumor removed from kidneys Past Anesthesia/Blood Transfusion Reactions: Blood Transfusion Reaction Past Psychological History: No Psychological Hx Reported Smoking Status: Never smoker Past Alcohol Use History: None Reported Past Drug Use History: None Reported - Past Family History Father Family Medical History: Cancer Additional Family Medical History / Comment(s): LEUKEMIA Mother Family Medical History: No Reported History Additional Family Medical History / Comment(s): healthy Medications and Allergies Home Medications Medication Instructions Recorded Confirmed Type Cholecalciferol [Vitamin D3 (25 25 mcg PO DAILY 03/13/24 03/13/24 History Mcg = 1000 Iu)] Liquid Iron(Unknown Dose) 1 dose PO DAILY 03/13/24 03/13/24 History Losartan [Cozaar] 25 mg PO DAILY 03/13/24 03/13/24 History Multivitamins, Thera [Multivitamin 1 tab PO DAILY 03/13/24 03/13/24 History (formulary)] Allergies Allergy/AdvReac Type Severity Reaction Status Date / Time mold Allergy sneezing, Verified 03/13/24 12:24 runny nose, watery eyes, congestion polyethylene glycol 3350 Allergy Rash/Hives Verified 03/13/24 12:24 [From Miralax] dry grass Allergy sneezing, Uncoded 03/13/24 12:24 runny nose, watery eyes, congestion dust Allergy sneezing, Uncoded 03/13/24 12:24 runny nose, watery eyes, congestion pet dander Allergy sneezing, Uncoded 03/13/24 12:24 runny nose, watery eyes, congestion Physical Exam Vitals: Vital Signs Temp Pulse Pulse Resp BP BP Pulse Ox 03/14/24 06:24 85 18 125/76 98 03/14/24 06:20 97.5 F L 81 18 130/77 99 03/14/24 05:30 80 16 113/72 98 03/14/24 02:00 85 14 116/74 97 03/13/24 22:00 90 11 L 120/75 97 03/13/24 20:00 101 H 11 L 116/68 96 03/13/24 19:00 135 H 14 138/69 96 03/13/24 18:00 90 15 131/80 97 03/13/24 17:00 89 13 121/79 98 03/13/24 16:38 89 127/82 98 03/13/24 16:00 89 10 L 130/78 03/13/24 15:00 131 H 17 132/82 100 03/13/24 14:00 128 H 11 L 98 03/13/24 13:00 74 7 L 117/77 99 03/13/24 12:50 85 18 117/77 98 03/13/24 12:03 133 H 18 129/84 99 03/13/24 12:00 134 H 10 L 142/83 98 03/13/24 11:00 137/83 03/13/24 10:43 97.3 F L 135 H 18 137/83 99 03/13/24 10:35 97.9 F 138 H 20 120/75 98 Intake and Output 03/13/24 03/14/24 03/14/24 22:59 06:59 14:59 Intake Total 54.865 275.5 Balance 54.865 275.5 Intake: Intake, IV Titration 54.865 95.5 Amount Diltiazem 125 mg In 95.5 Sodium Chloride 0.9% 100 ml @ 5 MG/HR 5 mls/hr IV .Q24H PAT Rx#:[id number] Heparin Sod,Pork in 0.45% 54.865 NaCl 25,000 unit In 0.45 % NaCl 1 250ml.bag @ 12 UNITS/KG/HR 7.348 mls/hr IV .Q24H PAT Rx#: [id number] Oral 180 Other: # Voids 1 Weight 61.235 kg Results 03/13/24 11:39 03/13/24 11:39 Cardiac Enzymes 03/13/24 03/13/24 03/13/24 Range/Units 11:39 11:39 14:59 AST 36 (17-59) U/L Troponin I 0.012 0.015 (0.000-0.034) ng/mL 03/13/24 Range/Units 20:11 AST (17-59) U/L Troponin I 0.014 (0.000-0.034) ng/mL Coagulation 03/13/24 03/13/24 03/14/24 Range/Units 11:39 20:11 02:14 PT 9.5 L (10.0-12.5) sec APTT 24.0 41.7 H 71.2 H (22.0-30.0) sec CBC 03/13/24 Range/Units 11:39 WBC 7.4 (3.8-10.6) k/uL RBC 4.72 (4.30-5.90) m/uL Hgb 14.6 (13.0-17.5) gm/dL Hct 44.9 (39.0-53.0) % Plt Count 264 (150-450) k/uL Comprehensive Metabolic Panel 03/13/24 Range/Units 11:39 Sodium 139 (137-145) mmol/L Potassium 5.4 H (3.5-5.1) mmol/L Chloride 102 (98-107) mmol/L Carbon Dioxide 29 (22-30) mmol/L BUN 29 H (9-20) mg/dL Creatinine 1.13 (0.66-1.25) mg/dL Glucose 106 H (74-99) mg/dL Calcium 9.5 (8.4-10.2) mg/dL AST 36 (17-59) U/L ALT 26 (4-49) U/L Alkaline Phosphatase 57 (38-126) U/L Total Protein 8.4 H (6.3-8.2) g/dL Albumin 4.9 (3.5-5.0) g/dL Current Medications Generic Name Dose Route Start Last Admin Trade Name Freq PRN Reason Stop Dose Admin Acetaminophen 650 mg 03/13/24 14:41 Acetaminophen Tab 325 Mg Tab PO Q6HR PRN Mild Pain or Fever > 100.5 Hydrocodone Bitart/Acetaminophen 1 each 03/13/24 14:41 Hydrocodone/Apap 5-325mg 1 Each Tab PO Q4HR PRN Moderate Pain (Scale 4 to 6) Cholecalciferol 25 mcg 03/14/24 09:00 03/14/24 09:15 Cholecalciferol 25 Mcg (1000 Iu) Tablet PO 25 mcg DAILY PAT Administration Ferrous Sulfate 300 mg 03/14/24 09:00 03/14/24 09:15 Ferrous Sulfate Oral Elixir 300 Mg/5 Ml Cup PO 300 mg DAILY PAT Administration Heparin Sodium (Porcine) 0 unit 03/13/24 14:40 03/13/24 22:58 Heparin Sodium 1,000 Un/Ml (10ml Vl) IV 1,530.87 unit PER PROTOCOL PRN Administration Low PTT Protocol Diltiazem HCl 125 mg/ Sodium 125 mls @ 5 mls/hr 03/13/24 11:30 03/14/24 09:23 Chloride IV 5 mg/hr .Q24H PAT 5 mls/hr Administration 5 MG/HR Heparin Sodium/Sodium Chloride 250 mls @ 7.348 mls/hr 03/13/24 14:45 03/13/24 22:58 25,000 unit/ Sodium Chloride IV 14 units/kg/hr .Q24H PAT 8.573 mls/hr Titration Protocol 12 UNITS/KG/HR Losartan Potassium 25 mg 03/14/24 09:00 03/14/24 09:15 Losartan 25 Mg Tab PO 25 mg DAILY PAT Administration Morphine Sulfate 4 mg 03/13/24 14:41 Morphine Sulfate 4 Mg/Ml Syringe IV Q4HR PRN Severe Pain (Scale 7 to 10) Multivitamins 1 each 03/14/24 09:00 03/14/24 09:15 Multivitamins, Thera 1 Each Tab PO 1 each DAILY PAT Administration Naloxone HCl 0.2 mg 03/13/24 14:41 Naloxone 0.4 Mg/Ml 1 Ml Vial IV Q2M PRN Opioid Reversal Ondansetron HCl 4 mg 03/13/24 14:41 Ondansetron 4 Mg/2 Ml Vial IVP Q8HR PRN Nausea And Vomiting Pantoprazole Sodium 40 mg 03/14/24 09:00 03/14/24 09:15 Pantoprazole 40 Mg/10 Ml Vial IV 40 mg DAILY PAT Administration Intake and Output 03/13/24 03/14/24 03/14/24 22:59 06:59 14:59 Intake Total 54.865 275.5 Balance 54.865 275.5 Intake: Intake, IV Titration 54.865 95.5 Amount Diltiazem 125 mg In 95.5 Sodium Chloride 0.9% 100 ml @ 5 MG/HR 5 mls/hr IV .Q24H PAT Rx#:[id number] Heparin Sod,Pork in 0.45% 54.865 NaCl 25,000 unit In 0.45 % NaCl 1 250ml.bag @ 12 UNITS/KG/HR 7.348 mls/hr IV .Q24H PAT Rx#: [id number] Oral 180 Other: # Voids 1 Weight 61.235 kg 03/13/24 11:39 03/13/24 11:39
[2024-03-14] MEDS: APIXABAN 5 MG TAB PO SCH (11:31)
[2024-03-14] MEDS: DILTIAZEM CD 120 MG CAP.ER.24H PO SCH (11:31)
[2024-03-15 03:42] VITALS: TEMP 97.9
[2024-03-15] MEDS: PANTOPRAZOLE 40 MG TABLET PO SCH (05:43)
--- NOTE | 2024-03-15 08:49 | P.PN ---
Subjective Progress Note Date: 03/15/24 Consult reason: atrial flutter History of present illness: This is a 63-year-old male patient with past medical history of testicular cancer, kidney tumor, hypertension. We have been asked to evaluate the patient for new onset of atrial flutter. Patient states that he could feel that he was in a rapid heart rate and felt like his chest was achy, dizziness and shortness of breath. Onset of symptoms or on Tuesday. He denies any recent infection or i llness. He does state he has been under increased stress. He has not been on any recent chemotherapy. He denies any weight change. He denies any alcohol use recently and only drinks occasionally. He denies any coffee intake. No smoking history no illicit drug use. Patient has been started on Cardizem drip and heparin drip. Discussed transitioning medications to oral and as an outpatient would consider possible cardioversion and possible ablation down the road. EKG: Atrial flutter at 135 bpm, telemetry was rate controlled in the 80s atrial flutter, repeat EKG sinus rhythm. Chest x-ray: No acute process CTA of the chest no PE, right middle lobe pulmonary nodule Laboratory studies: WBC 7.4, hemoglobin 14.6, D-dimer 0.73. BNP 2300, troponin negative x 3. Potassium 5.4. Creatinine 1.13. Home cardiac medications: Losartan 25 mg daily Echocardiogram performed in the office in 2011 revealed normal LV size and normal function. Mild tricuspid regurgitation. Mild pulmonic regurgitation. Cardiolite stress test performed in the office in 2011 revealed negative stress test with excellent exercise capacity. Normal perfusion except a hotspot noted in the lateral wall both on the stress test and rest images. Gated images showed normal wall motion and thickening. 03/15 Patient seen and examined. He remains in sinus rhythm. Echocardiogram reviewed at the bedside with normal EF. Blood pressure 112/60, heart rate 74, pulse ox 97% on room air. Patient has been started on Eliquis. Patient's is very concerned about a colonoscopy that the patient needs to have done. Patient instructed to stop Eliquis 2 days before procedures. Holter monitor will be arranged from the office. Physical examination: Gen: This is a 63-year-old male in no acute distress VS: reviewed HEENT: Head is atraumatic, normocephalic. Pupils equal, round. Sclerae is anicteric. NECK: Supple. No JVD. LUNGS: Clear to auscultation. No wheezes or rhonchi. No intercostal retractions. HEART: Regular rate and rhythm. No murmur. ABDOMEN: Soft No tenderness. EXTREMITIES: No pedal edema. No calf tenderness. NEUROLOGICAL: Patient is awake, alert and oriented x3. Assessment: New onset paroxysmal typical atrial flutter, converted to sinus rhythm History of testicular cancer status post surgery, radiation and chemotherapy with metastatic disease History of kidney tumor resection Plan: Continue to hold losartan at discharge Continue patient on Cardizem CD 120 mg daily and Eliquis 5 mg twice daily 7-day Holter monitor to be picked up at [facility] office this afternoon. Follow-up with Dr. Lee in 2 weeks. Patient is cleared for discharge home on the above medications. Nurse practitioner note has been reviewed, I agree with documented findings and plan of care. Patient was seen and examined. Objective - Vital Signs Vital signs: Vital Signs Temp 97.9 F 03/15/24 03:41 Pulse 74 03/15/24 03:41 Resp 20 03/15/24 03:41 BP 112/68 03/15/24 03:41 Pulse Ox 97 03/15/24 03:41 FiO2 Intake & Output 03/14/24 03/15/24 03/15/24 18:59 06:59 18:59 Intake Total 635.5 240 Balance 635.5 240 Weight 60.5 kg Intake: Intake, IV Titration 95.5 Amount Diltiazem 125 mg In 95.5 Sodium Chloride 0.9% 100 ml @ 5 MG/HR 5 mls/hr IV .Q24H PAT Rx#:[id number] Oral 540 240 Other: # Voids 2 2 - Labs CBC & Chem 7: 03/13/24 11:39 03/13/24 11:39 Labs: Abnormal Lab Results - Last 24 Hours (Table) 03/14/24 Range/Units 02:14 Hemoglobin A1c 6.1 H (<=6.0) %
[2024-03-15 09:51] VITALS: BP 109/57; PULSE 86; RESP 18
--- NOTE | 2024-03-15 09:55 | P.PN ---
Subjective Progress Note Date: 03/14/24 Patient is a 63-year-old male with a past medical history of CVA/TIA, history of testicular cancer s/p radiation and chemotherapy and history of tinnitus and TIA with no residual defects presents to ER with complaints of palpitations. Patient states that yesterday he started feels like his heart was racing. Apparently has been having on and off symptoms for the past 1 week. But resolved quickly on its own. Since last night his symptoms persisted which made him to come to ER. Otherwise denied any complaints of chest pain associate with that. [place] shortness of breath. No cough or sputum production. No fever no chills. Denied any recent illnesses. No prior history of atrial flutter/fibrillation. Chest x-ray showed no acute pulmonary process CTA chest showed no evidence of PE. Right middle lobe pulmonary nodule short- term follow-up in 6 to 12 months recommended to ensure stability. EKG showed atrial flutter/tachycardia with rapid ventricular response. Laboratory data showed WBC 7.4 hemoglobin 14.6 and platelets 264 D-dimer 0.73 sodium 139 potassium 5.4 with slight hemolysis BUN BUN 29 and creatinine 1.13 and TSH within normal limits. proBNP 2300 troponin x 3 negative urinalysis n egative for infection. 03/14/2024 Patient is resting in the bed. Awake alert and oriented x 3. Converted to sinus rhythm. Heparin drip and Cardizem drip has been discontinued. Patient wa s started on oral Cardizem and Eliquis. 2D echocardiogram was ordered. Otherwise patient denied any palpitations. No dizziness or lightheadedness. Patient states that he feels better today. Current medications reviewed. Objective - Vital Signs Vital signs: Vital Signs Temp 97.9 F 03/15/24 08:00 Pulse 86 03/15/24 08:00 Resp 18 03/15/24 08:00 BP 109/57 03/15/24 08:00 Pulse Ox 99 03/15/24 08:00 FiO2 Intake & Output 03/14/24 03/15/24 03/15/24 18:59 06:59 18:59 Intake Total 635.5 240 Balance 635.5 240 Weight 60.5 kg Intake: Intake, IV Titration 95.5 Amount Diltiazem 125 mg In 95.5 Sodium Chloride 0.9% 100 ml @ 5 MG/HR 5 mls/hr IV .Q24H PAT Rx#:[id number] Oral 540 240 Other: # Voids 2 2 - Exam PHYSICAL EXAMINATION: Patient is lying in the bed comfortably, no acute distress, awake alert and oriented.. HEENT: Normocephalic. Neck is supple. Pupils reactive. Nostrils clear. Oral cavity is moist. Neck reveals no JVD, carotid bruits, or thyromegaly. CHEST EXAMINATION: Trachea is central. Symmetrical expansion. Lung correa clear to auscultation and percussion. CARDIAC: Normal S1, S2 with no gallops. No murmurs ABDOMEN: Soft. Bowel sounds normal. No organomegaly. No abdominal bruits. Extremities: reveal no edema. No clubbing or cyanosis Neurologically awake, alert, oriented x3 with well-coordinated movements. No focal deficits noted Skin: No rash or skin lesions. Psychiatric: Coperative. Nonsuicidal Musculoskeletal: No joint swelling or deformity. Normal range of motion. - Labs CBC & Chem 7: 03/13/24 11:39 03/13/24 11:39 Labs: Abnormal Lab Results - Last 24 Hours (Table) 03/14/24 Range/Units 02:14 Hemoglobin A1c 6.1 H (<=6.0) % Assessment and Plan Assessment: New onset atrial flutter/fibrillation. Currently converted to sinus rhythm. History of metastatic testicular cancer status post surgery and radiation History of CVA/TIA with no residual defect GI and DVT prophylaxis Plan: Continue the telemonitoring. Cardizem drip has been discontinued and was started on oral Cardizem. Anticoagulation changed to Eliquis. 2D echocardiogram was ordered. Cardiology is on board. Current with home medications and follow-up closely. Patient would like to wait until 2D echocardiogram to be done today.
[2024-03-15 10:28] LABS: Chol/HDL Ratio 4.45 Ratio; LDL Cholesterol,Calculated 127.4 mg/dL (0.0-131.0)
--- NOTE | 2024-03-15 17:37 | CA ---
Transthoracic Echo Report Name: Cristian Gill Age: 63 Gender: M : 1960 Exam Date: 03/15/2024 08:58 Exam Location: [facility] Ht (in): 72 Wt (lb): 135 Ordering Physician: Gabbie Garcia Attending/Referring Phys: [id number], Jose Competency Evaluated Nurse Aide Addie Bergman RDCS Procedure CPT: Indications: LVF Cardiac Hx: Technical Quality: Fair Contrast 1: Total Dose (mL): Contrast 2: Total Dose (mL): MEASUREMENTS (Male / Female) Normal Values 2D ECHO LV Diastolic Diameter PLAX 3.7 cm 4.2 - 5.9 / 3.9 - 5.3 cm LV Systolic Diameter PLAX 2.7 cm IVS Diastolic Thickness 1.0 cm 0.6 - 1.0 / 0.6 - 0.9 cm LVPW Diastolic Thickness 1.0 cm 0.6 - 1.0 / 0.6 - 0.9 cm LV Relative Wall Thickness 0.5 RV Internal Dim ED PLAX 1.9 cm LVOT Diameter 1.7 cm LA Systolic Diameter LX 2.6 cm 3.0 - 4.0 / 2.7 - 3.8 cm LV Diastolic Volume MOD BP 55.7 cm??? 67 - 155 / 56 - 104 cm??? LV Systolic Volume MOD BP 18.5 cm??? 22 - 58 / 19 - 49 cm??? LV Ejection Fraction MOD BP 66.8 % >= 55 % LV Cardiac Index MOD BP 1848.3 cm???/min???m??? LV Diastolic Volume MOD 4C 60.2 cm??? LV Systolic Volume MOD 4C 25.0 cm??? LV Ejection Fraction MOD 4C 58.6 % LV Cardiac Index MOD 4C 1754.5 cm???/min???m??? LV Diastolic Length 4C 7.5 cm LV Systolic Length 4C 6.9 cm LV Diastolic Volume MOD 2C 51.3 cm??? LV Systolic Volume MOD 2C 11.7 cm??? LV Ejection Fraction MOD 2C 77.2 % LV Cardiac Index MOD 2C 1968.7 cm???/min???m??? LV Diastolic Length 2C 7.5 cm LV Systolic Length 2C 5.8 cm LA Volume 44.3 cm??? 18 - 58 / 22 - 52 cm??? LA Volume Index 25.3 cm???/m??? 16 - 28 cm???/m??? M-MODE Aortic Root Diameter MM 3.6 cm LA Systolic Diameter MM 2.4 cm LA Ao Ratio MM 0.6 AV Cusp Separation MM 1.2 cm DOPPLER AV Peak Velocity 150.5 cm/s AV Peak Gradient 9.1 mmHg AV Mean Velocity 109.7 cm/s AV Mean Gradient 5.3 mmHg AV Velocity Time Integral 31.4 cm LVOT Peak Velocity 104.1 cm/s LVOT Peak Gradient 4.3 mmHg LVOT Velocity Time Integral 23.2 cm LVOT Stroke Volume 50.3 cm??? LVOT Stroke Volume Index 27.9 ml/m??? LVOT Cardiac Index 2500.3 cm???/min???m??? AV Area Cont Eq vti 1.6 cm??? AV Area Cont Eq pk 1.5 cm??? MV Area PHT 2.2 cm??? Mitral E Point Velocity 103.3 cm/s Mitral A Point Velocity 111.9 cm/s Mitral E to A Ratio 0.9 MV Deceleration Time 344.7 ms TR Peak Velocity 212.6 cm/s TR Peak Gradient 18.1 mmHg FINDINGS Left Ventricle Left ventricular ejection fraction is estimated at 60-65%. Left ventricular cavity size normal. Left ventricular wall thickness normal. No obvious regional wall motion abnormalities. Right Ventricle Normal right ventricular size and function. Right ventricular systolic pressure within normal limits. Right Atrium Mild right atrial dilatation. Left Atrium Mild left atrial dilatation. Mitral Valve Moderate thickening/calcification of the anterior mitral valve leaflet. Mild mitral regurgitation. No mitral stenosis. Aortic Valve Thickened aortic valve without stenosis. Fixed LCC. No aortic regurgitation. Tricuspid Valve Structurally normal tricuspid valve. Moderate tricuspid regurgitation. No tricuspid stenosis. Pulmonic Valve Structurally normal pulmonic valve. Mild pulmonic regurgitation. No pulmonic stenosis. Pericardium Small pericardial effusion. Pericardial effusion located anteriorly. Aorta Aorta at upper limits of normal. CONCLUSIONS Normal LV function Mild mitral regurgitation Thickened aortic valve leaflet with restricted leaflet mobility primarily involving the left coronary cusp Consider transesophageal echo for further evaluation Mild mitral and moderate tricuspid regurgitation Small pericardial effusion Previewed by: Dr. Ki Figueroa MD (Electronically Signed) Final Date: 15 March 2024 17:37
--- NOTE | 2024-03-19 09:54 | P.DS ---
Providers Date of admission: 03/13/24 14:32 Expected date of discharge: 03/15/24 Attending physician: Deo Olmos Consults: 03/13/24 14:41 Consult Physician Urgent Consulting Provider: Jatinder Lee Consult Reason/Comments: A-flutter Do you want consulting provider notified?: Yes Primary care physician: Deo Olmos Hospital Course: Final diagnosis New onset atrial flutter/fibrillation. Currently converted to sinus rhythm. 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 Patient will follow-up with Dr. Olmos in the outpatient setting upon discharge. Patient is to continue with holding losartan. Patient is to continue with Cardizem and Eliquis per cardiology and outpatient follow-up with as scheduled. Patient is to obtain a Holter monitor in the cardiology office to day. Total time taken is greater than 35 minutes. Hospital course This is a 63-year-old male who was recently admitted with new onset atrial flutter/fibrillation being followed by cardiology. Patient converted to sinus rhythm and is maintained on Cardizem and Eliquis. Cardiology recommending continuing to hold losartan until follow-up and has been cleared for discharge. Patient is scheduled to undergo Holter monitor at the office later today for 7 days and will follow-up as discussed. Patient has been cleared by cardiology and patient reports to feeling well and is eager to going home. Please refer to cardiology notes for further HPI. Patient has also been instructed to follow-up with Dr. Deo Olmos this week. Currently no reports of chest pain, shortness of breath, or palpitations. Patient is afebrile. No reports of nausea or vomiting and patient is tolerating diet. Patient will be discharged home today. Guarded prognosis Physical exam: Gen: This is a 63-year-old male who is awake, alert and oriented x 3, well- developed, thin built, elderly appearing HEENT: Head is atraumatic, normocephalic. Pupils equal, round. Sclerae is anicteric. NECK: Supple. No JVD. No lymphadenopathy. No thyromegaly. LUNGS: Diminished breath sounds bilaterally otherwise clear to auscultation. No wheezes or rhonchi. No intercostal retractions. HEART: S1, S2 are muffled ABDOMEN: Soft. Thin. Bowel sounds are present. No masses. No tenderness. EXTREMITIES: No pedal edema. No calf tenderness. NEUROLOGICAL: Patient is awake, alert and oriented x3. Cranial nerves 2 through 12 are grossly intact. Please refer to medication reconciliation sheet for a list of medications. The impression and plan of care has been dictated by Marija Haddad, Nurse Practitioner as directed. Dr. Hiren MD I have performed a history and examination and MDM of this patient, discussed the same with the dictator, and agree with the dictator's assessment and plan as written ,documented as a scribe. Based on total visit time, I have performed more than 50% of the visit. Patient Condition at Discharge: Stable Plan - Discharge Summary New Discharge Prescriptions: New Diltiazem Cd [Cardizem CD] 120 mg PO DAILY #30 cap Apixaban [Eliquis] 5 mg PO BID #60 tab Continue Multivitamins, Thera [Multivitamin (formulary)] 1 tab PO DAILY Cholecalciferol [Vitamin D3 (25 Mcg = 1000 Iu)] 25 mcg PO DAILY Liquid Iron(Unknown Dose) 1 dose PO DAILY Discontinued Losartan [Cozaar] 25 mg PO DAILY Discharge Medication List Cholecalciferol [Vitamin D3 (25 Mcg = 1000 Iu)] 25 mcg PO DAILY 03/13/24 [History] Liquid Iron(Unknown Dose) 1 dose PO DAILY 03/13/24 [History] Multivitamins, Thera [Multivitamin (formulary)] 1 tab PO DAILY 03/13/24 [History] Apixaban [Eliquis] 5 mg PO BID #60 tab 03/14/24 [Rx] Diltiazem Cd [Cardizem CD] 120 mg PO DAILY #30 cap 03/14/24 [Rx] Follow up Appointment(s)/Referral(s): Jatinder Lee MD [Medical Doctor] - 03/22/24 9:00 am Deo Olmos DO [Primary Care Provider] - 03/20/24 2:20 pm Patient Instructions/Handouts: Atrial Flutter (GEN) Activity/Diet/Wound Care/Special Instructions: 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 Hemoglobin A1c is 6.1 and discuss with your primary care provider regarding dietary modifications and prediabetes Discharge Disposition: HOME SELF-CARE
== END 2024-03-15 11:12 | disposition home or self-care (01) ==
LOC: EC 10:32 → 3SCARD 14:32
PROVIDERS: ADMIT Family Medicine; ATTEND Family Medicine
DX: I48.3 Typical atrial flutter (principal); I48.91 Unspecified atrial fibrillation; I10 Essential (primary) hypertension; Z79.01 Long term (current) use of anticoagulants; Z79.899 Other long term (current) drug therapy; Z86.73 Personal history of transient ischemic attack (TIA), and cerebral infarction without residual deficits; Z85.47 Personal history of malignant neoplasm of testis; Z92.21 Personal history of antineoplastic chemotherapy; Z92.3 Personal history of irradiation
CPT/HCPCS: 96366 ×3; 96375 ×2; 96376; 96368; 96365; 99291; 36415; 93005; 93306; 85379; 83880; 80061; 80053; 84443; 83735; 84484; 85025; 85610; 85730 ×2; 81003; 83036; 71046; 71275; G0378 ×3; J1644 ×2; Q9967; J2470